=== PATIENT | female | born 1995 | race Caucasian/White ===

== ENCOUNTER 2020-10-02 15:45 | Emergency (ER) | payer OTHER, SELFPAY ==
--- NOTE | 2020-10-02 16:31 | PC.NURSE ---
Call to waiting room, no answer.
--- NOTE | 2020-10-02 16:47 | PC.NURSE ---
Not in waiting room when called.
== END 2020-10-02 16:47 | disposition left against medical advice (07) ==
DX: Z53.21 Procedure and treatment not carried out due to patient leaving prior to being seen by health care provider (principal)
CPT/HCPCS: 99199

== ENCOUNTER 2020-10-04 10:35 | Emergency (ER) | payer OTHER, SELFPAY ==
[2020-10-04 10:40] VITALS: BP 131/90; PULSE 122; RESP 20; TEMP 36.1; O2SAT 99
[2020-10-04 11:03] VITALS: BP 130/72; PULSE 118; RESP 20; TEMP 36.1; O2SAT 99
[2020-10-04 11:22] VITALS: BP 125/86; BP 136/101; PULSE 104; PULSE 70
[2020-10-04 11:22] LABS: Basophils Percent Auto 0.3 % (0.2-1.2); Eosinophils Percent Auto 0.3 % (0-4.4); Hematocrit 41.9 % (37.0-47.0); Hemoglobin 14.9 g/dL (12.0-15.0); Immature Granulocyte Absolute 0.05 K/mm3 (0.00-0.031); Immature Granulocyte Percent A 0.4 % (0-0.5); Lymphocytes Absolute Auto 2.07 K/mm3 (0.9-3.2); Lymphocytes Percent Auto 17.4 % (18.3-44.2); Mean Corpuscular HGB Conc 35.6 g/dl (32-36); Mean Corpuscular Hemoglobin 30.5 pg (26-34); Mean Corpuscular Volume 85.9 fl (80-100); Mean Platelet Volume 9.3 fl (7.4-10.4); Monocytes Absolute Auto 0.7 K/mm3 (0.1-0.6); Monocytes Percent Auto 5.9 % (2.6-8.5); Neutrophils Percent Auto 75.7 % (45.5-73.1); Platelet Count Result 286 k/mm3 (150-375); Red Blood Count 4.88 M/mm3 (4.2-5.4); Red Cell Distribution Width 11.7 % (11.5-14.5); White Blood Count 11.9 K/mm3 (4.5-10.0)
[2020-10-04 11:23] VITALS: BP 134/86; PULSE 131
[2020-10-04] MEDS: PROMETHAZINE HCL 25 MG/ML AMPUL 12.5 MG IV PUSH (11:29)
[2020-10-04] MEDS: SODIUM CHLORIDE 0.9% IV 1,000 ML 999 ML IV CONT (11:30)
[2020-10-04 11:36] LABS: Potassium 3.3 mmol/L (3.4-5.0)
[2020-10-04 11:47] LABS: Alanine Aminotransferase 16 U/L (4-35); Albumin Level 5.4 g/dL (3.5-5.1); Alkaline Phosphatase 46 U/L (38-126); Anion Gap 13 mmol/L (8-16); Aspartate Amino Transferase 24 U/L (14-36); Bilirubin,Total 1.1 mg/dL (0.2-1.3); Blood Urea Nitrogen 11 mg/dL (7-17); Calcium 9.8 mg/dL (8.4-10.2); Carbon Dioxide 25 mmol/L (22-30); Chloride 97 mmol/L (98-107); Estimated CRCL calculation 123 ml/min; Estimated Glomerular Filt Rate > 60; Glucose 144 mg/dL (65-105); Lipase 43 U/L (23-300); Sodium 135 mmol/L (137-145)
--- NOTE | 2020-10-04 11:47 | ED.NAVMDI ---
HPI - Nausea/Vomiting/Diarrhea General Chief complaint: Nausea/Vomiting/Diarrhea Stated complaint: /vomiting Time Seen by Provider: 10/04/20 10:54 History of Present Illness HPI Narrative: Patient is a 24-year-old female who presents ER with nausea and vomiting. Patient is 9 weeks . She is a G3, P2. She is scheduled to see Dr. Rebolledo at the [facility] in a couple days. She has been having nausea related to her reports she has not kept anything down for the last 72 hours. No abdominal pain or vaginal bleeding or vaginal discharge. No urinary frequency urgency or dysuria. Has had issues with vomiting in previous pregnancies. Related Data Allergies Allergy/AdvReac Type Severity Reaction Status Date / Time No Known Allergies Allergy Verified 10/04/20 11:07 Review of Systems Review of Systems: All systems reviewed & are unremarkable except as noted in HPI and below Constitutional: Constitutional: Denies chills, Denies fever(s) and Denies weakness ENT: Denies nasal congestion and Denies sore throat Respiratory: Respiratory: Denies cough and Denies dyspnea Gastrointestinal: Gastrointestinal: Denies abdominal pain, Denies constipation, Denies diarrhea, Reports nausea and Reports vomiting Genitourinary: Genitourinary: Denies abnormal vaginal bleeding, Denies nocturia, Denies dysuria, Denies flank pain and Denies vaginal discharge PMFSH Past Medical History Medical History (Updated 10/04/20 @ 14:35 by Matt Toney MD) Healthy female adult Surgical History Surgical History (Updated 10/04/20 @ 11:48 by Matt Toney MD) No pertinent past surgical history Social History Social History (Updated 10/04/20 @ 11:49 by Matt Toney MD) Smoking status: Never smoker Exam Narrative: Exam Narrative: GENERAL: Well-appearing, well-nourished, and in no acute distress. HEAD: Normocephalic, atraumatic. CHEST: Clear to auscultation. No respiratory distress. HEART: Tachycardic and regular. Normal peripheral pulses. ABDOMEN: Soft, nontender, nondistended EXTREMITIES: Normal range of motion. No edema. SKIN: Warm, dry, no rash. NEURO: Alert and oriented x3. PSYCH: Normal mood and affect. Course Course Emergency Course: Patient feels improved after IV fluid and antiemetics. She is tolerating oral fluids. Feels comfortable with discharge home with Phenergan. Will add on urine culture. No urinary symptoms. Vital Signs Vital signs: Vital Signs Temperature 97.0 F L 10/04/20 10:40 Pulse Rate 122 H 10/04/20 10:40 Respiratory Rate 20 10/04/20 10:40 Blood Pressure 131/90 10/04/20 10:40 Pulse Oximetry 99 10/04/20 10:40 Temperature 97.0 F L 10/04/20 11:03 Pulse Rate 78 10/04/20 14:00 Respiratory Rate 18 10/04/20 14:00 Blood Pressure 119/82 10/04/20 14:00 Pulse Oximetry 99 10/04/20 14:00 MDM - Nausea/Vomiting/Diarrhea Lab Data Result diagrams: 10/04/20 10:59 10/04/20 10:59 Labs: Lab Results 10/04/20 10/04/20 10/04/20 Range/Units 10:59 10:59 10:59 WBC 11.9 H (4.5-10.0) K/mm3 RBC 4.88 (4.2-5.4) M/mm3 Hgb 14.9 (12.0-15.0) g/dL Hct 41.9 (37.0-47.0) % MCV 85.9 (80-100) fl MCH 30.5 (26-34) pg MCHC 35.6 (32-36) g/dl RDW 11.7 (11.5-14.5) % Plt Count 286 (150-375) k/mm3 MPV 9.3 (7.4-10.4) fl Immature Gran % (Auto) 0.4 (0-0.5) % Neut % (Auto) 75.7 H (45.5-73.1) % Lymph % (Auto) 17.4 L (18.3-44.2) % [place] % (Auto) 5.9 (2.6-8.5) % Eos % (Auto) 0.3 (0-4.4) % Baso % (Auto) 0.3 (0.2-1.2) % Lymph # (Auto) 2.07 (0.9-3.2) K/mm3 [place] # (Auto) 0.7 H (0.1-0.6) K/mm3 Eos # (Auto) 0.0 (0-0.3) K/mm3 Baso # (Auto) 0.0 (0.0-0.1) K/mm3 Abs Immat Gran (auto) 0.05 H (0.00-0.031) K/mm3 Absolute Neuts (auto) 9.0 H (1.3-6.7) K/mm3 Absolute Nucleated RBC 0.0 (0.0-0.012) K/mm3 Nucleated RBC % 0.0 (0.0-0.2) % Sod
[2020-10-04 12:17] LABS: Add Urine Microscopic? YES; Appearance Urine Cloudy (Clear); Bilirubin Urine Negative (Negative); Blood Urine Negative (Negative); Color Urine Amber (Yellow); Glucose Urine UA Negative (Negative); Ketones Urine 2+ mg/dL (Negative); Leukocyte Esterase Ur Negative LEU/UL (Negative); Nitrate Urine Negative (Negative); Protein Urine 2+ mg/dL (Negative); Urobilinogen Urine Negative mg/dL (<2.0)
[2020-10-04 12:29] LABS: Specific Grav Ur 1.031 (1.001-1.035)
[2020-10-04 12:34] LABS: Bacteria Urine 2+ /hpf; Mucus Urine Few /lpf; Squamous Epithelial Cell Urine Many /hpf (Few); WBC Urine 0-3 /hpf
[2020-10-04 14:00] VITALS: BP 119/82; PULSE 78; RESP 18; O2SAT 99
[2020-10-04 14:57] VITALS: BP 127/70; PULSE 70; RESP 18; O2SAT 99
== END 2020-10-04 14:58 | disposition home or self-care (01) ==
PROVIDERS: Emergency Provider Emergency Medicine
DX: O21.9 Vomiting of pregnancy, unspecified (principal); Z3A.09 9 weeks gestation of pregnancy
CPT/HCPCS: 36415; 80053; 81001; 83690; 85025; 87086; 96361; 96374; 99284; J2550; J7030

== ENCOUNTER 2021-05-06 05:58 | Inpatient (IN) | payer OTHER, SELFPAY ==
[2021-05-06] VITALS (67 sets, daily range): BP systolic 117–167; BP diastolic 64–111; PULSE 55–128; RESP 18; TEMP 36.2–37; O2SAT 94–100; BMI 24.5
--- OUTSIDE RECORDS SUMMARY | 2021-05-06 06:07 | XMS_ITS | Encounter Summary ---
:1995 Author Reason for Visit OB visit 28w2d Glucose today Assessment and Plan 1. Routine care Discussion Note: None recorded.Patient educational handouts: No information available. Plan of Care Reminders Provider Appointments None ? ? recorded. Lab None ? ? recorded. Referral None ? ? recorded. Procedures None ? ? recorded. Surgeries None ? ? recorded. Imaging None ? ? recorded. Medications Name Start Date ? ? aspirin ? ? promethazine 25 mg tablet ? TAKE 1 TABLET BY MOUTH EVERY 4 HOURS Medications Administered None recorded. Vitals Height Weight BMI Blood Pressure 5 ft 7 in 140 lbs 21.9 kg/m2 122/78 mm[Hg] Results Lab Results None recorded. Allergies Code Code System Name Reaction Severity Onset NKDA ? ? ? Problems Name Status Onset Date Source ? Active 10/27/2020 ? History of Pre-eclampsia Active ? ? Procedures None recorded. Vaccine List None recorded. Social History Tobacco Smoking Status Never Smoker W
--- OUTSIDE RECORDS SUMMARY | 2021-05-06 06:07 | XMS_ITS | Encounter Summary ---
:1995 Author Reason for Visit OB visit Assessment and Plan 1. Routine care Discussion [...] BMI Blood Pressure 5 ft 7 in 138 lbs 21.6 kg/m2 113/75 mm[Hg] Results Lab Results None recorded. Allergies Code Code System Name Reaction Severity Onset NKDA ? ? ? Problems Name Status Onset Date Source ? Active 10/27/2020 ? History of Pre-eclampsia Active ? ? Procedures None recorded. Vaccine List None recorded. Social History Tobacco Smoking Status Never Smoker What type of diet are you following? REGULAR
--- OUTSIDE RECORDS SUMMARY | 2021-05-06 06:07 | XMS_ITS | Encounter Summary ---
:1995 Author Reason for Visit OB visit 32w1d Assessment and Plan 1. Routine care Discussion [...] BMI Blood Pressure 5 ft 7 in 139 lbs 21.8 kg/m2 109/73 mm[Hg] Results Lab Results None recorded. Allergies Code Code System Name Reaction Severity Onset NKDA ? ? ? Problems Name Status Onset Date Source ? Active 10/27/2020 ? History of Pre-eclampsia Active ? ? Procedures None recorded. Vaccine List None recorded. Social History Tobacco Smoking Status Never Smoker What type of
--- OUTSIDE RECORDS SUMMARY | 2021-05-06 06:07 | XMS_ITS | Encounter Summary ---
:1995 Author Reason for Visit OB visit OB [id number] EDC 05/09/2021 LMP 08/02/2020 Assessment and Plan Assessment Note Patient is __34_weeks . Dis cussed plan. 1. Routine care Discussion Note: None recorded.Patient [...] BMI Blood Pressure 5 ft 7 in 143 lbs 22.4 kg/m2 126/79 mm[Hg] Results Lab Results None recorded. Allergies Code Code System Name Reaction Severity Onset NKDA ? ? ? Problems Name Status Onset Date Source ? Active 10/27/2020 ? History of Pre-eclampsia Active ? ?
--- OUTSIDE RECORDS SUMMARY | 2021-05-06 06:07 | XMS_ITS | Encounter Summary ---
:1995 Author Reason for Visit OB visit 37w2d Assessment and Plan Assessment Note Patient is ___weeks . Discu ssed plan. Discussion Note: None recorded.Patient educational handouts: No [...] BMI Blood Pressure 5 ft 7 in 147 lbs 23 kg/m2 112/74 mm[Hg] Results Lab Results None recorded. Allergies Code Code System Name Reaction Severity Onset NKDA ? ? ? Problems Name Status Onset Date Source ? Active 10/27/2020 ? History of Pre-eclampsia Active ? ? Procedures Date Name Performed by ?
--- OUTSIDE RECORDS SUMMARY | 2021-05-06 06:07 | XMS_ITS | Encounter Summary ---
:1995 Author Reason for Visit None recorded. Assessment and Plan 1. History of pre-eclampsia ? US, obstetric, follow-up Discussion Note: None recorded.Patient educational handouts: No information available. Plan of Care Reminders Provider Appointments None ? ? recorded. Lab None ? ? recorded. Referral None ? ? recorded. Procedures None ? ? recorded. Surgeries None ? ? recorded. Imaging US, 04/11/2021 [place] [facility], Follow-up Medications Name Start Date ? ? aspirin ? ? promethazine 25 mg tablet ? TAKE 1 TABLET BY MOUTH EVERY 4 HOURS Medications Administered None recorded. Vitals None recorded. Results Lab Results None recorded. Allergies Code Code System Name Reaction Severity Onset NKDA ? ? ? Problems Name Status Onset Date Source ? Active 10/27/2020 ? History of Pre-eclampsia Active ? ? Procedures Date Name Performed by ? 04/11/2021 US, Obstetric, Follow-up [place]
--- OUTSIDE RECORDS SUMMARY | 2021-05-06 06:07 | XMS_ITS ---
:1995 Author Care Team Providers Name Role Phone Miranda Sanchez Primary Care Provider Unavailable Allergies Code Code System Name Reaction Severity Status Onset NKDA ? Medications Name Status Start Date Stop Date ? ? aspirin Active ? Not available Compazine 5 mg tablet Completed 05/03/2018 10/07/2020 take 1 tablet by oral route every 4 hours as needed for nausea and vomiting metronidazole 500 mg tablet Active ? Not available TAKE 1 TABLET BY MOUTH TWICE DAILY FOR 7 DAYS nifedipine 10 mg capsule Completed ? 021 take 2 Capsule by oral route every 6 hours Active ? Not available 28 mg-800 mcg tablet Completed ? One Daily 27 mg iron-800 mcg tablet Completed ? 09/04/2014 take 1 tablet by oral route every day promethazine Completed ? 11/24/2020 promethazine 25 mg tablet Active ? Not av ailable TAKE 1 TABLET BY MOUTH EVERY 4 HOURS Reglan 10 mg tablet Completed 01/21/2014 01/21/2014 take 1 tablet by oral route every 8 hours as needed for nausea Vitamin D2 1,250 mcg (50,000 unit) capsule Completed 06/2909/04/2014 take 1 capsule by oral route every week for 8 weeks. Zofran 8 mg tablet Completed 02/26/2014 09/04/2014 take 1 tablet by oral route every 8 hours Zoloft 25 mg tablet Completed 09/11/2014 10/02/2014 take 1 tablet by oral route every day Problems Name Status Onset Date Source ? Female Genital Organ Symptoms Unknown
--- OUTSIDE RECORDS SUMMARY | 2021-05-06 06:07 | XMS_ITS | Encounter Summary ---
[...] BMI Blood Pressure 5 ft 7 in 151 lbs 23.6 kg/m2 118/75 mm[Hg] Results Lab Results None recorded. Allergies Code Code System Name Reaction Severity Onset NKDA ? ? ? Problems Name Status Onset Date Source ? Active 10/27/2020 ? History of Pre-eclampsia Active ? ? Procedures Date Name Performed by ? 04/11/2021 , Obstetric, Follow-up [place]
--- OUTSIDE RECORDS SUMMARY | 2021-05-06 06:07 | XMS_ITS | Encounter Summary ---
[...] ft 7 in 147 lbs 23 kg/m2 121/78 mm[Hg] Results Lab Results None recorded. Allergies Code Code System Name Reaction Severity Onset NKDA ? ? ? Problems Name Status Onset Date Source ? Active 10/27/2020 ? History of Pre-eclampsia Active ? ? Procedures Date Name Performed by ? 04/11/2021 US, Obstetric, Follow-up [place]
[2021-05-06 06:37] LABS: Basophils Percent Auto 0.2 % (0.2-1.2); Eosinophils Absolute Auto 0.2 K/mm3 (0-0.3); Eosinophils Percent Auto 2.8 % (0-4.4); Hematocrit 30.1 % (37.0-47.0); Hemoglobin 9.9 g/dL (12.0-15.0); Immature Granulocyte Absolute 0.07 K/mm3 (0.00-0.031); Immature Granulocyte Percent A 0.8 % (0-0.5); Lymphocytes Absolute Auto 2.37 K/mm3 (0.9-3.2); Lymphocytes Percent Auto 27.9 % (18.3-44.2); Mean Corpuscular HGB Conc 32.9 g/dl (32-36); Mean Corpuscular Hemoglobin 28.4 pg (26-34); Mean Corpuscular Volume 86.5 fl (80-100); Mean Platelet Volume 9.6 fl (7.4-10.4); Monocytes Absolute Auto 0.5 K/mm3 (0.1-0.6); Monocytes Percent Auto 5.9 % (2.6-8.5); Neutrophils Absolute Auto 5.3 K/mm3 (1.3-6.7); Neutrophils Percent Auto 62.4 % (45.5-73.1); Platelet Count Result 263 k/mm3 (150-375); Red Blood Count 3.48 M/mm3 (4.2-5.4); Red Cell Distribution Width 12.5 % (11.5-14.5); White Blood Count 8.5 K/mm3 (4.5-10.0)
--- NOTE | 2021-05-06 06:40 | LDADM ---
This patient, Zully Wiley, was admitted to Labor/Delivery/Recovery 108 on 05/06/21 at 05:58. Plans for labor, pain management and were discussed with patient. Patient/family oriented to hospital policies and general routines including ID bracelet, bed and alarms, visiting hours, pain management, procedures, bathroom and other care routines, personal items, smoking policy, room service/diet and guest tray routines, infant security routines, and visiting hours. Patient/Family are encouraged to report perceived risks to care and to ask questions if they do not understand what they are told or what they should do. See OBIX for further documentation.
[2021-05-06] MEDS: OXYTOCIN 30 UNITS/NS 500 ML 30 UNITS/500 ML BAG IV CONT (06:58)
[2021-05-06] MEDS: LACTATED RINGERS 1,000 ML 125 ML IV CONT ×2 (06:58→10:07)
--- NOTE | 2021-05-06 07:50 | PM.IMHP ---
H&P: HPI History of Present Illness Date/Time: 05/06/21 07:50 Chief Complaint: induction of labor Narrative: Zully is a at 39 weeks for elective induction. Had gHTN last but none this . This uncomplicated. Review of Systems Review of Systems: All systems reviewed & are unremarkable except as noted in HPI and below PMFSH Family History Family History (Updated 04/11/21 @ 14:35 by Ranjith Millan RN) Other No pertinent family history Social History Social History Smoking status: Never smoker Substance use: never Spiritual care concerns: No Meds Home Medications and Allergies Home Medications Medication Instructions Recorded Confirmed Type PNV cmb#95-ferrous fumarate-FA 1 tablet PO DAILY 04/11/21 05/06/21 History [] Allergies Allergy/AdvReac Type Severity Reaction Status Date / Time No Known Allergies Allergy Verified 04/11/21 14:27 Vital Signs Vital Signs - 24 hr 05/06/21 06:30 05/06/21 06:45 05/06/21 07:00 Pulse Rate 69 72 73 Blood Pressure 123/73 125/74 123/78 05/06/21 07:15 05/06/21 07:30 05/06/21 07:45 Pulse Rate 77 69 68 Blood Pressure 124/74 117/75 118/69 Exam Const: General: no acute distress Resp: Effort & Inspection: normal respiratory effort Auscultation: clear to auscultation bilaterally Cardio: Rate: regular rate Rhythm: regular rhythm GI: GI Palp: Yes Soft to palpation Extrem: General: normal to inspection H&P: Results Labs Labs: Short CBC 05/06/21 Range/Units 06:25 WBC 8.5 (4.5-10.0) K/mm3 Hgb 9.9 L (12.0-15.0) g/dL Hct 30.1 L (37.0-47.0) % Plt Count 263 (150-375) k/mm3 Assessment and Plan Additional Plan Here for induction of labor- pitocin GBS neg FHT category 1 AROM clear SVE 1.5/50/-2
[2021-05-06 10:16] LABS: Rapid Plasma Reagin Non-Reactive (NonReactive)
--- NOTE | 2021-05-06 10:57 | WPDANESEPPF ---
Anes - Initial Pre Proc Eval Date/Time: 05/06/21 10:57 Surgeon: Miranda Sanchez MD Pre Op Diagnosis: Induction of Labor Patient Data Age: 25 Gender: F Height: 1.68 m Weight: 69 kg Last Vital Signs Temp 36.6 C 05/06/21 09:30 Pulse 63 05/06/21 10:48 BP 141/111 H 05/06/21 10:48 Pulse Ox 94 05/06/21 10:09 Allergies Allergy/AdvReac Type Severity Reaction Status Date / Time No Known Allergies Allergy Verified 04/11/21 14:27 Home Medications Medication Instructions Recorded Confirmed Type PNV cmb#95-ferrous fumarate-FA 1 tablet PO DAILY 04/11/21 05/06/21 History [] Laboratory Tests 05/06/21 05/06/21 05/06/21 06:25 06:25 06:25 WBC 8.5 K/mm3 K/mm3 (4.5-10.0) RBC 3.48 M/mm3 L M/mm3 (4.2-5.4) Hgb 9.9 g/dL L g/dL (12.0-15.0) Hct 30.1 % L % (37.0-47.0) MCV 86.5 fl fl (80-100) MCH 28.4 pg pg (26-34) MCHC 32.9 g/dl g/dl (32-36) RDW 12.5 % % (11.5-14.5) Plt Count 263 k/mm3 k/mm3 (150-375) MPV 9.6 fl fl (7.4-10.4) Immature Gran % (Auto) 0.8 % H % (0-0.5) Neut % (Auto) 62.4 % % (45.5-73.1) Lymph % (Auto) 27.9 % % (18.3-44.2) [place] % (Auto) 5.9 % % (2.6-8.5) Eos % (Auto) 2.8 % % (0-4.4) Baso % (Auto) 0.2 % % (0.2-1.2) Lymph # (Auto) 2.37 K/mm3 K/mm3 (0.9-3.2) [place] # (Auto) 0.5 K/mm3 K/mm3 (0.1-0.6) Eos # (Auto) 0.2 K/mm3 K/mm3 (0-0.3) Baso # (Auto) 0.0 K/mm3 K/mm3 (0.0-0.1) Abs Immat Gran (auto) 0.07 K/mm3 H K/mm3 (0.00-0.031) Absolute Neuts (auto) 5.3 K/mm3 K/mm3 (1.3-6.7) Absolute Nucleated RBC 0.0 K/mm3 K/mm3 (0.0-0.012) Nucleated RBC % 0.0 % % (0.0-0.2) RPR Non-reactive (NonReactive) Blood Type O Positive Antibody Screen Negative Patient hx anesthesia problems: none Family hx anesthesia problems: none Results Review: All pre-operative results and documents have been reviewed as part of the pre-operative evaluation. [facility] Family History Family History Other No pertinent family history Social History Social History Smoking status: Never smoker Substance use: never Spiritual care concerns: No Anes - Eval Final PreProcedure Day of Procedure 05/06/21 10:57 Patient weight: normal Heart: regular rate and rhythm Lungs: clear to auscultation Neurological: alert and oriented ASA classification: II Emergent: no Anesthetic plan: proceed Anesthesia type and monitoring: regional epidural and standard monitoring Results Review: All pre-operative results and documents have been reviewed as part of the pre-operative evaluation. Informed Consent: The patient's anesthetic plan and its attendant risks and benefits were discussed with the patient/family/POA. Questions were solicited and answers provided to the satisfaction of the patient/family/POA.
[2021-05-06] MEDS: ONDANSETRON INJ 4 MG/2 ML VIAL IV PUSH ×2 (13:29→17:27)
--- NOTE | 2021-05-06 14:46 | PM.OBPRVD ---
OB - Delivery Note Procedure Delivery date: 05/06/21 Procedure: events: Labor Induction Intrapartal events: None Induction method: AROM and per pitocin protocol Delivery monitor: external FHT and external uterine Route of delivery: Episiotomy description: None Laceration Description: None Quantitative Blood Loss (ml): 350 Anesthesia type: Epidural Disposition: floor Narrative: With adequate expulsive efforts by the mother, the baby's head was delivered OA. The baby's anterior shoulder was delivered under the pubic symphysis without difficulty. The posterior shoulder and the rest of the baby delivered without difficulty. The was placed on the mothers chest and suctioned and stimulated. The cord was clamped and cut after 30 seconds. Mother and baby both stable. Baby Date of : 05/06/21 Time of : 14:35 Weeks of gestation at delivery: 39 gender: Female Weight (pounds): 7 Weight (ounces): 2 presentation: vertex Placenta delivery description: Spontaneous cord vessel description: 3 Vessels, Nuchal Cord and Delayed Cord Clamping score one minute: 7 score five minutes: 9
[2021-05-06] MEDS: OXYTOCIN 30 UNITS/NS 500 ML 30 UNITS/500 ML BAG 125 UNITS IV CONT ×2 (15:00→15:08)
[2021-05-06] MEDS: miSOPROStol 200 MCG TABLET 800 MCG (15:36)
[2021-05-06 16:30] LABS: Amphetamine Screen Urine Negative (Negative); Barbiturate Screen Urine Negative (Negative); Benzodiazepines Screen Urine Negative (Negative); Cannabinoid Screen Urine Positive (Negative); Cocaine Screen Urine Negative (Negative); Methadone Screen Urine Negative (Negative); Opiate Screen Urine Negative (Negative); Phencyclidine Screen Urine Negative (Negative)
[2021-05-06] MEDS: METHYLERGONOVINE MALEATE 0.2 MG/ML VIAL IM (16:50)
[2021-05-06] MEDS: ACETAMINOPHEN 325 MG TABLET 650 MG PO (17:13)
[2021-05-06 17:56] LABS: Hematocrit 26.2 % (37.0-47.0); Hemoglobin 8.7 g/dL (12.0-15.0); Mean Corpuscular HGB Conc 33.2 g/dl (32-36); Mean Corpuscular Hemoglobin 29.1 pg (26-34); Mean Corpuscular Volume 87.6 fl (80-100); Mean Platelet Volume 9.8 fl (7.4-10.4); Platelet Count Result 218 k/mm3 (150-375); Red Blood Count 2.99 M/mm3 (4.2-5.4); Red Cell Distribution Width 12.6 % (11.5-14.5); White Blood Count 20.6 K/mm3 (4.5-10.0)
--- NOTE | 2021-05-06 20:11 | PC.NURSE ---
Patient transferred to post room #280 via wheel chair. Support person present. Oriented to unit, room, information board, rooming in, admission packet and security measures. Patient verbalizes understanding.
[2021-05-06] MEDS: IBUPROFEN 600 MG TABLET PO (20:23)
[2021-05-06] MEDS: POLYSACCHARIDE IRON COMPLEX 150 MG CAPSULE PO (20:24)
[2021-05-07] VITALS (12 sets, daily range): BP systolic 109–134; BP diastolic 58–83; PULSE 54–92; RESP 16–18; TEMP 36.1–37; O2SAT 98–100
[2021-05-07] MEDS: ACETAMINOPHEN 325 MG TABLET 650 MG PO (00:49)
[2021-05-07] MEDS: IBUPROFEN SUSPENSION 200 MG/10 ML UDC 600 MG PO ×2 (05:15→17:11)
[2021-05-07 06:10] LABS: Hematocrit 23.2 % (37.0-47.0); Hemoglobin 7.6 g/dL (12.0-15.0)
[2021-05-07] MEDS: DOCUSATE SODIUM 100 MG CAPSULE PO ×2 (09:37→17:11)
[2021-05-07] MEDS: MULTIVIT/MIN/PREN/FOL AC/IRON TABLET 1 TAB PO (09:37)
[2021-05-07] MEDS: POLYSACCHARIDE IRON COMPLEX 150 MG CAPSULE PO ×2 (09:37→17:11)
--- NOTE | 2021-05-07 09:43 | P.PNOB_ITS ---
OB - PN: Subj Subjective Date/time seen: 05/07/21 09:43 Interval history: Had a delayed pp hemorrhage, with total EBL of over 1000ml now. Hgb 7.6 from 9.9. Has fatigue, feels pale. Also hoping to go home today. Patient comments: pain well controlled baby status: bottle feeding well feeding status: exclusively bottle feeding OB - PN: Obj Data Labs CBC & Chem 7: 05/07/21 05:21 Labs: Laboratory Results - last 24 hr 05/06/21 05/06/21 05/06/21 06:25 15:56 17:52 WBC 20.6 H RBC 2.99 L Hgb 8.7 L Hct 26.2 L MCV 87.6 MCH 29.1 MCHC 33.2 RDW 12.6 Plt Count 218 MPV 9.8 Urine Opiates Screen Negative Urine Methadone Screen Negative Ur Barbiturates Screen Negative Ur Phencyclidine Scrn Negative Ur Amphetamine Screen Negative U Benzodiazepines Scrn Negative Urine Cocaine Screen Negative U Cannabinoids Screen Positive A RPR Non-reactive 05/07/21 05:21 WBC RBC Hgb 7.6 L Hct 23.2 L MCV MCH MCHC RDW Plt Count MPV Urine Opiates Screen Urine Methadone Screen Ur Barbiturates Screen Ur Phencyclidine Scrn Ur Amphetamine Screen U Benzodiazepines Scrn Urine Cocaine Screen U Cannabinoids Screen RPR OB - PN A/P Assessment and Plan (1) Anemia due to blood loss: Code(s): D50.0 - Iron deficiency anemia secondary to blood loss (chronic) Status: Acute Assessment and Plan: Discussed RBA of blood transfusion and recommended 2 units given her large pp hemorrhage and significantly low Hgb. She is agreeable. 2 units pRBCs, pretreat with tylenol and benadryl. (2) , delivered: Code(s): O80 - Encounter for full-term uncomplicated delivery Status: Acute Assessment and Plan: Encouraged one more night given pp hemorrhage. Pt agrees. otherwise routine post care. Plan day: 1 Plan: routine care Time Spent With Patient Time: Total time spent is greater than 50% in coordination of care (as docu mented) at patient's floor/unit and/or counseling patient: Time with patient: less than 15 minutes Exam Narrative: NAD abdomen soft, nontender, fundus firm below the umbilicus Extremities nontender, 1+ edema
--- NOTE | 2021-05-07 09:49 | WPDANLDPN2 ---
Anes-Prog Note L&D Date/Time: 05/07/21 09:49 Comfortable throughout: labor and delivery Neuraxial method: epidural Epidural/Spinal procedure site: clean & non-tender Neuro status: Neuro function grossly intact. Cardiovascular status: normal Respiratory status: normal Airway patency: baseline Mental status: baseline Post-Op hydration status: normal Vital Signs: Last Vital Signs Temp 36.6 C 05/07/21 07:45 Pulse 56 L 05/07/21 07:45 Resp 16 05/07/21 07:45 BP 123/59 L 05/07/21 07:45 Pulse Ox 100 05/07/21 07:45 Pain score (VAS): 0 I/O: Intake & Output 05/06/21 05/07/21 05/07/21 23:59 07:59 15:59 Intake Total 500 Output Total 215 Balance 285 Post-procedural complaints: none Patient feedback: Patient satisfied with anesthetic care.
[2021-05-07] MEDS: ACETAMINOPHEN ELIXIR 325 MG/10.15 ML UDC 650 MG PO (11:47)
[2021-05-07] MEDS: diphenhydrAMINE HCl CAP 25 MG CAPSULE PO (11:48)
--- NOTE | 2021-05-07 15:25 | PCCCNOTE ---
Addendum entered by JIMY Shearer 05/08/21 07:05: Recvd email from [facility]: Your information has been reviewed and assessed by a Fabric Worker Leader and was also approved by a school traffic supervisor. The information you provided did not meet one of the criteria for an investigation (eligible victim, eligible perpetrator, eligible event, or jurisdiction). The information as been documented and will be kept on file. Should you learn of further information or have additional concerns, please feel free to contact us. Original Note: Recvd notification that pt. was THC+. Ice Rink Attendant did not order that baby have UDS or Meconium tested. Pt. reports using THC for her nausea; Pt. states she took medications for the nausea but they weren?t working. ANNIKA Caraballo at bedside; this is pt's third baby. Pt. and baby girl will be living in [place] with ANNIKA Caraballo and 2 other children 6 and 2 yr olds. Pt. reports both families are very supportive and denies needing any necessary baby supplies. Pt. is already established with both [facility] and [employer]. Pt. denies prior DCFS involvement. resources provided to pt. DCFS Online Report #[id number]. RN Jo westfall.
--- NOTE | 2021-05-07 19:30 | PC.NURSE ---
Patient viewed the discharge video Mother & Baby Care, The First Two Weeks online. Patient was given the opportunity and encouraged to ask questions. Patient verbalized understanding of information shared and has been given the mother/baby guide for home reference.
[2021-05-08] MEDS: IBUPROFEN SUSPENSION 200 MG/10 ML UDC 600 MG PO (07:09)
[2021-05-08] MEDS: DOCUSATE SODIUM 100 MG CAPSULE PO (07:09)
[2021-05-08] MEDS: POLYSACCHARIDE IRON COMPLEX 150 MG CAPSULE PO (07:09)
[2021-05-08 08:00] VITALS: BP 126/83; PULSE 56; RESP 18; TEMP 36.3
--- NOTE | 2021-05-08 09:12 | P.PNOB_ITS ---
OB - PN: Subj Subjective Date/time seen: 05/08/21 09:12 Interval history: Feels so much better after blood. Ready for DC. Patient comments: no complaints [place] baby status: doing well feeding status: exclusively bottle feeding OB - PN: Obj Data Labs CBC & Chem 7: 05/07/21 05:21 Labs: Laboratory Results - last 24 hr 05/06/21 06:25 Blood Type O Positive Antibody Screen Negative Crossmatch See Detail OB - PN A/P Plan day: 2 Plan: routine care and discharge home Comments: s/p 2 units pRBCs Time Spent With Patient Time: Total time spent is greater than 50% in coordination of care (as documented) at patient's floor/unit and/or counseling patient: Time with patient: less than 15 minutes Exam Narrative: NAD abdomen soft, nontender, fundus firm below the umbilicus Extremities nontender, 1+ edema
--- NOTE | 2021-05-08 09:15 | PM.OBDSVD ---
DS: Admitting Diagnosis Discharge Date 05/08/21 Admitting Diagnosis term DS: Discharge Diagnosis Discharge Diagnosis (1) , delivered: Code(s): O80 - Encounter for full-term uncomplicated delivery Status: Acute (2) Anemia due to blood loss: Code(s): D50.0 - Iron deficiency anemia secondary to blood loss (chronic) Status: Acute OB - DS: Summary Hospital Course Hospital Course: Patient was induced electively. She had an uncomplicated but had a significant hemorrhage. She received 2 units of blood. The remainder of her course was uncomplicated. OB Procedures : Ultrasound OB Procedures Intrapartum: Spontaneous Vag Delivery OB Procedures: : Transfusion Peripartum Data Delivery Method: Natural Vaginal complications: transfusion and uterine atony Status at Discharge Functional status at discharge: independent ambulation Time Spent with Patient Time attestation: Total time spent providing and/or coordinating discharge services: Exam Narrative: NAD abdomen soft, appropriately tender Ext non tender, 1+ edema DS: Data Data Completed and Pending Labs on day of discharge: Labs from last 24 hours 05/06/21 06:25 Blood Type O Positive Antibody Screen Negative Crossmatch See Detail Discharge Plan Discharge Attending physician on discharge: Miranda Sanchez Discharging Clinician: Miranda Sanchez Anticipated Discharge Date/Time: 05/08/21 11:00 Patient Disposition: Home, Self-Care Activity: may shower, pelvic rest and other - see discharge instructions Diet: regular Discharge Instructions: Education: Mom and Baby Guide Given to: Mother Follow-Up: Call your delivering provider's office for an appointment to be seen in: 4 Weeks Mom and baby should come to the [facility] for the follow-up appointment. Appointment Date/Time: Monday, May 10, 2021 at 10:00 am What to expect at your follow-up visit: Blood Pressure Check Physical Assessment Call [phone] if you are unable to keep your appointment time. BREAST CARE: * Wear a snug supportive bra. Bottle Feeding: * May apply ice packs EPISIOTOMY/PERINEAL CARE: * Until bleeding stops, use your susan bottle after urinating * Change your pad frequently throughout the day * You may take sitz baths several times a day (fill your bathtub with warm water and soak for 20 minutes.) Do NOT bathe in the water ACTIVITY: * Rest as much as possible. * Do not exercise or lift anything heavier than your baby (such as laundry or other children.) * Avoid stairs or driving as much as possible. * Do not put anything into the vagina. No douching, tampons, or sexual activity until seen by physician. NOTIFY PHYSICIAN IF YOU HAVE ANY QUESTIONS OR IF ANY OF THE FOLLOWING SYMPTOMS OCCUR: * If your vaginal bleeding becomes foul smelling. * If your vaginal bleeding becomes more heavy than a period or if your bleeding changes from pink to bright red. However, you may pass an occasional walnut-sized clot once or twice for the first week . * If you experience a sharp, shooting pain in you calves. * If you discover a hard, reddened area on your breast or if you experience flu-like symptoms. DIET: * Eat regular, well-balanced meals. * Drink plenty of fluids daily. If , drink to thirst. Patient Instructions: Antibiotic Form Stand Alone Forms: General Discharge Information Follow-up/Referrals: Miranda Sanchez MD [Physician] - 4 Weeks Discharge Medications: Continued PNV [id number] fumarate-FA [] 28 mg iron- 800 mcg Tablet 1 tablet PO DAILY RF: 0 Date of admission: 05/06/21 05:58 Primary Care Provider: PHYSICIAN,SIGN LANGUAGE INTERPRETER Admitting Provider: Miranda Sanchez Attending physician on admission: Miranda Sanchez Condition: Stable
--- NOTE | 2021-05-08 10:16 | PC.NURSE ---
Self care and infant care discharge instructions given including follow up visit date and time. Mother verbalized understanding. No questions or concerns voiced. Very pleasant. Anxious for discharge. at side.
[2021-05-10 10:01] VITALS: BP 141/89; PULSE 73; RESP 20; TEMP 37; O2SAT 100
== END 2021-05-08 11:33 | disposition home or self-care (01) | DRG 560 ==
LOC: ANHLDR 06:51 → ANHOB2 21:19
PROVIDERS: Admitting Provider Obstetrics & Gynecology; Visit Provider Obstetrics & Gynecology
DX: O69.81X0 Labor and delivery complicated by cord around neck, without compression, not applicable or unspecified (principal); O99.02 Anemia complicating childbirth; D50.9 Iron deficiency anemia, unspecified; O72.1 Other immediate postpartum hemorrhage; Z3A.39 39 weeks gestation of pregnancy; Z37.0 Single live birth
CPT/HCPCS: 36415; 36430; 80307; 85014; 85018; 85025; 85027; 86592; 86850; 86900; 86901; 86920; A9270; J2210; J2405; J2590; J2795; J7120; P9016

== ENCOUNTER 2021-10-25 11:20 | Emergency (ER) | payer OTHER, SELFPAY ==
[2021-10-25 11:20] VITALS: BP 134/84; PULSE 75; RESP 16; TEMP 36.6; O2SAT 100
--- NOTE | 2021-10-25 11:24 | ED.SKABFB ---
HPI - Skin/Abscess/Foreign Bdy General Chief complaint: Skin/Abscess/Foreign Body Stated complaint: rash Time Seen by Provider: 10/25/21 11:24 Source: patient Mode of arrival: ambulatory Limitations: no limitations History of Present Illness HPI narrative: Ms. Wiley is a 25-year-old female patient presenting to the clinic today with complaints of a rash x2 days. She reports that she tested positive for COVID approximately 10 days ago. She is supposed to be returning to work today however she developed an itchy rash yesterday. She reports that this rash is on her arms, legs, torso, and face. She woke up this morning with her eyes swelling. This has improved some since this morning. She is taking Benadryl. She denies any environmental changes, foods, or medications. She did report that she has been out in the boss however she was fully covered. Related Data Home Medications Medication Instructions Recorded Confirmed sertraline 50 mg PO DAILY 10/25/21 10/25/21 Allergies Allergy/AdvReac Type Severity Reaction Status Date / Time No Known Allergies Allergy Verified 10/25/21 11:39 Review of Systems Review of Systems: Pertinent positives per HPI. Patient denies any fever, chills, headache, visual changes, dizziness, cough, runny nose, sore throat, shortness of breath, chest pain, palpitations, nausea, vomiting, diarrhea, constipation, abdominal pain, or any urinary issues. PMFSH Past Medical History Medical History Healthy female adult Surgical History Surgical History No pertinent past surgical history Family History Family History Other No pertinent family history Social History Social History Smoking status: Never smoker Substance use: never Spiritual care concerns: No Comments At the time of my signature, I reviewed and agree with the nursing past medical, surgical, social, and family history. There is no relevant family history pertinent to the patient complaint. Exam Narrative: General: Well-developed, well nourished, in no apparent distress Head: Normocephalic, atraumatic. Cardio: Regular rate and rhythm, s1 and s2 normal, no murmur appreciated. Resp: Clear to auscultation bilaterally, no rhonchi, rales, wheezing or rubs. Integumentary: [place], warm, and dry, intact without lesion, red raised urticaria rash to the bilateral forearms, torso, face, neck and thighs. Course Course Emergency Course: Portions of this record may have been created with voice recognition software. Level of Care: Express Care Visit Vital Signs Vital signs: Vital signs reviewed MDM - Skin/Abscess/Foreign Bdy MDM Narrative Medical decision making narrative: At time patient is resting comfortably on the exam table. She has pain mildly elevated urticaria rash to her bilateral forearms, legs, face, and torso that is itchy. I will go ahead and treat her with a course of prednisone, Pepcid, and Benadryl. Offered a steroid shot in the clinic and patient declined. Supportive measures were discussed with patient and she agreed to the discharge plan. Differential Diagnosis Differential diagnosis: Likely abscess of skin or subcutaneous tissue, viral exanthem, dermatophytosis, urticaria, herpes zoster, allergic reaction to drug, cellulitis, eczema, insect bites, impetigo and contact dermatitis Discharge Plan Discharge Clinical Impression: Urticaria Patient Disposition: Home, Self-Care Condition: Stable Instructions: Urticaria (ED) Additional Instructions: Prednisone, Pepcid, and Benadryl as discussed Increase fluids and stay well-hydrated Tylenol/Motrin as needed for pain fever If symptoms persist in 3 to 5 days I would recommend follow-up with your [facility]
== END 2021-10-25 11:45 | disposition home or self-care (01) ==
PROVIDERS: Emergency Provider Nurse Practitioner Family
DX: L50.9 Urticaria, unspecified (principal)
CPT/HCPCS: 99213; G0463

== ENCOUNTER 2021-10-31 20:05 | Emergency (ER) | payer OTHER, SELFPAY ==
--- NOTE | ~2021-10-31 | XR_ITS ---
EXAMINATION: XR chest 2V Exam Date/Time: 10/31/2021 20:45 CDT CLINICAL HISTORY: MEDIAL CP, COVID + ON 10/15, SMOKER Comparison: None available. RESULT: Lines, tubes, and devices: None. Lungs and pleura: Clear. Cardiomediastinal silhouette: Normal cardiomediastinal silhouette. Other: No acute osseous or upper abdominal finding. IMPRESSION: No acute cardiopulmonary process Reviewed, dictated and finalized at location K.
[2021-10-31 20:29] VITALS: BP 141/67; PULSE 69; RESP 16; TEMP 36.4; O2SAT 100
--- NOTE | 2021-10-31 20:36 | ECG_ITS ---
Measurements Intervals [place] Rate: 71 P: 58 CT: 137 QRS: 108 QRSD: 103 T: 61 QT: 388 QTc: 423 Interpretive Statements SINUS RHYTHM RIGHT AXIS DEVIATION BORDERLINE ECG Electronically Signed On 11-01-2021 6:31:11 CDT by Som Fofana D.O.
[2021-10-31 20:45] LABS: Basophils Absolute Auto 0.1 K/mm3 (0.0-0.1); Basophils Percent Auto 0.7 % (0.2-1.2); Eosinophils Absolute Auto 0.2 K/mm3 (0-0.3); Eosinophils Percent Auto 3.3 % (0-4.4); Hematocrit 36.4 % (37.0-47.0); Hemoglobin 11.6 g/dL (12.0-15.0); Immature Granulocyte Absolute 0.02 K/mm3 (0.00-0.031); Immature Granulocyte Percent A 0.3 % (0-0.5); Lymphocytes Absolute Auto 3.32 K/mm3 (0.9-3.2); Mean Corpuscular HGB Conc 31.9 g/dl (32-36); Mean Corpuscular Hemoglobin 27.8 pg (26-34); Mean Corpuscular Volume 87.1 fl (80-100); Mean Platelet Volume 9.1 fl (7.4-10.4); Monocytes Absolute Auto 0.5 K/mm3 (0.1-0.6); Monocytes Percent Auto 6.4 % (2.6-8.5); Neutrophils Percent Auto 42.3 % (45.5-73.1); Platelet Count Result 278 k/mm3 (150-375); Red Blood Count 4.18 M/mm3 (4.2-5.4); Red Cell Distribution Width 15.4 % (11.5-14.5); White Blood Count 7.1 K/mm3 (4.5-10.0)
[2021-10-31 20:56] LABS: INR 1.1; Prothrombin Time 13.7 Seconds (11.1-14.7)
[2021-10-31 20:57] LABS: Partial Thromboplastin Time 28.4 SECONDS (22.3-36.8)
[2021-10-31 21:00] LABS: Alanine Aminotransferase 12 U/L (6-35); Albumin Level 4.3 g/dL (3.5-5.1); Alkaline Phosphatase 57 U/L (38-126); Anion Gap 5 mmol/L (8-16); Aspartate Amino Transferase 25 U/L (14-36); Bilirubin,Total 0.2 mg/dL (0.2-1.3); Blood Urea Nitrogen 13 mg/dL (7-17); Calcium 8.9 mg/dL (8.4-10.2); Carbon Dioxide 27 mmol/L (22-30); Chloride 104 mmol/L (98-107); Estimated CRCL calculation 99 ml/min; Estimated Glomerular Filt Rate > 60; Glucose 89 mg/dL (65-110); Lipase 111 U/L (23-300); Potassium 3.9 mmol/L (3.4-5.0); Sodium 136 mmol/L (137-145)
[2021-10-31 21:10] LABS: Troponin I < 0.012 ng/mL (0.000-0.034)
[2021-10-31 22:44] VITALS: BP 115/78; PULSE 58; RESP 15; O2SAT 98
--- NOTE | 2021-10-31 23:50 | ED.GENADULT ---
HPI - General Adult General Chief complaint: Unspecified Stated complaint: chest pain/blurry vision Time Seen by Provider: 10/31/21 22:49 History of Present Illness HPI narrative: 25-year-old female presents to the emergency room for evaluation of chest pain that she has had for 4 days. Patient states the pain has been constant, does not radiate, and is worse with deep breaths and movement. Patient states that she recently was diagnosed with COVID. Patient denies having a recent cough. Patient is also complaining of intermittent palpitations. No cardiac history Related Data Home Medications Medication Instructions Recorded Confirmed sertraline 50 mg PO DAILY 10/25/21 10/25/21 Allergies Allergy/AdvReac Type Severity Reaction Status Date / Time No Known Allergies Allergy Verified 10/31/21 22:40 Review of Systems Review of Systems: CONSTITUTIONAL: Denies fever, chills, or sweats. EYES: Denies visual changes, redness, or discharge. ENT: Denies rhinorrhea, congestion, sore throat, or otalgia. CARDIOVASCULAR: Reports chest pain, palpitations RESPIRATORY: Denies cough or dyspnea. GASTROINTESTINAL: Denies abdominal pain, nausea, vomiting, or diarrhea. GENITOURINARY: Denies dysuria or hematuria. SKIN: Denies rash or itching. MUSCULOSKELETAL: Denies back pain, joint pain, or myalgia. NEUROLOGIC: Denies headache, numbness, dizziness, or weakness. PSYCHIATRIC: Denies anxiety or depression. [facility] Past Medical History Medical History Healthy female adult Surgical History Surgical History No pertinent past surgical history Family History Family History Other No pertinent family history Social History Social History Smoking status: Never smoker Substance use: never Spiritual care concerns: No Exam Narrative: GENERAL: Well-appearing, well-nourished, and in no acute distress. HEAD: Normocephalic, atraumatic. EYES: PERRLA and EOMI. CHEST: Clear to auscultation. No respiratory distress. No wheezes rales or rhonchi HEART: Regular rate and rhythm. No murmur heard. Normal peripheral pulses. EXTREMITIES: Normal range of motion. No edema. SKIN: Warm, dry, no rash. NEURO: No focal deficits. Alert and oriented x3. PSYCH: Normal mood and affect. Course Vital Signs Vital signs: Vital Signs Temperature 36.4 C 10/31/21 20:29 Pulse Rate 69 10/31/21 20:29 Respiratory Rate 16 10/31/21 20:29 Blood Pressure 141/67 H 10/31/21 20:29 Pulse Oximetry 100 10/31/21 20:29 Temperature 36.4 C 10/31/21 20:29 Pulse Rate 58 L 10/31/21 22:44 Respiratory Rate 15 10/31/21 22:44 Blood Pressure 115/78 10/31/21 22:44 Pulse Oximetry 98 10/31/21 22:44 Medical Decision Making MDM Narrative Medical decision making narrative: 25-year-old female presents to the emergency room with reproducible substernal chest pain for 4 days. Patient states the pain is worse when she moves around or takes a deep breath. CBC, CMP were unremarkable. Troponin was negative. Chest x-ray showed no acute cardiopulmonary process. Discussed findings with patient, recommended ordering a D-dimer to evaluate for possible PE due to recent COVID infection. Patient states that she no longer wants to wait for her further evaluation and wishes to leave A. Discussed risks with patient including a possible PE, worsening of condition or . Vital Signs Vital Signs: Vital Signs Temperature 36.4 C 10/31/21 20:29 Pulse Rate 69 10/31/21 20:29 Respiratory Rate 16 10/31/21 20:29 Blood Pressure 141/67 H 10/31/21 20:29 Pulse Oximetry 100 10/31/21 20:29 Temperature 36.4 C 10/31/21 20:29 Pulse Rate 58 L 10/31/21 22:44 Respiratory Rate 15 10/31/21 22:44 Blood Pressure 115/78 10/31/21 2
--- NOTE | 2021-11-01 02:57 | PC.NURSE ---
This RN was informed by ORE DIGGER that the pt wanted to leave against medical advice. I went in to the room to sign appropriate paperwork with the pt as pt was gone. Assumed pt was able to ambulate w/ steady gait. Risks of leaving AMA were discussed w/ pt by ZORA Valladares
== END 2021-11-01 00:30 | disposition left against medical advice (07) ==
PROVIDERS: Emergency Medicine; Emergency Provider Nurse Practitioner Family
DX: R07.1 Chest pain on breathing (principal); Z86.16 Personal history of COVID-19; R94.31 Abnormal electrocardiogram [ECG] [EKG]
CPT/HCPCS: 36415; 71046; 80053; 83690; 84484; 85025; 85610; 85730; 93005; 99284

== ENCOUNTER 2024-03-08 21:08 | Observation (INO) | payer OTHER, SELFPAY ==
--- NOTE | 2024-03-08 22:57 | OBADM ---
This patient, Zully Wiley, admitted to the OB room Labor/Delivery/Recovery 105 for observation. Patient/family oriented to hospital policies and general routines including ID bracelet, bed and alarms, visiting hours, pain management, procedures, bathroom and other care routines, personal items, smoking policy, room service/diet, and visiting hours. Patient/Family are encouraged to report perceived risks to care and to ask questions if they do not understand what they are told or what they should do.
--- NOTE | 2024-03-10 16:07 | PM.OBTRLD ---
OB - Triage/Final Diagnosis Visit Information Date of evaluation: 03/08/24 Reason for evaluation: threatened labor Comments/Additional reasons for admission: I have assessed the risk for this patient, Zullynaty Wiley, and determined that she would benefit from observation care.
== END 2024-03-08 23:10 | disposition home or self-care (01) ==
PROVIDERS: Admitting Provider Obstetrics & Gynecology; Visit Provider Obstetrics & Gynecology
DX: O47.1 False labor at or after 37 completed weeks of gestation (principal); Z3A.39 39 weeks gestation of pregnancy
CPT/HCPCS: G0378; G0379

== ENCOUNTER 2024-03-10 04:50 | Inpatient (IN) | payer OTHER, SELFPAY ==
[2024-03-10] VITALS (79 sets, daily range): BP systolic 105–138; BP diastolic 57–85; PULSE 40–128; RESP 18; TEMP 36.2–36.8; O2SAT 88–100; BMI 22.4
--- NOTE | 2024-03-10 06:10 | WPDANESEPP ---
Anes - Eval Pre Procedure Procedure: Labor Epidural Date/Time: 03/10/24 06:10 Surgeon: Kesha Preop Diagnosis: Labor Pain Pre Op Diagnosis: SROM Patient Data Age: 28 Gender: F Height: Weight: Allergies Allergy/AdvReac Type Severity Reaction Status Date / Time No Known Allergies Allergy Verified 10/31/21 22:40 Home Medications Medication Instructions Recorded Confirmed Type prenat.vits,dontrell,mjj-[id number]-pbeau 1 tablet 02/11/24 History : gestational age (LAINEY 03/12/24, ) Patient hx anesthesia problems: none Family hx anesthesia problems: none Results Review: All pre-operative results and documents have been reviewed as part of the pre-operative evaluation. [facility] Past Medical History Medical History Healthy female adult Surgical History Surgical History No pertinent past surgical history Family History Family History Other No pertinent family history Social History Social History Smoking status: Never smoker Substance use: never Spiritual care concerns: No Exam Day of Procedure 03/10/24 06:10 Patient weight: normal Heart: regular rate and rhythm Lungs: normal air movement Airway: Mallampati scale class II Neurological: alert and oriented
[2024-03-10 06:31] LABS: Basophils Percent Auto 0.2 % (0.2-1.2); Eosinophils Absolute Auto 0.1 K/mm3 (0-0.3); Eosinophils Percent Auto 0.8 % (0-4.4); Hematocrit 34.5 % (37.0-47.0); Hemoglobin 11.7 g/dL (12.0-15.0); Immature Granulocyte Absolute 0.08 K/mm3 (0.00-0.031); Immature Granulocyte Percent A 0.8 % (0-0.5); Lymphocytes Absolute Auto 1.76 K/mm3 (0.9-3.2); Lymphocytes Percent Auto 17.7 % (18.3-44.2); Mean Corpuscular HGB Conc 33.9 g/dl (32-36); Mean Corpuscular Volume 88.5 fl (80-100); Mean Platelet Volume 9.8 fl (7.4-10.4); Monocytes Absolute Auto 0.6 K/mm3 (0.1-0.6); Monocytes Percent Auto 5.8 % (2.6-8.5); Neutrophils Absolute Auto 7.5 K/mm3 (1.3-6.7); Neutrophils Percent Auto 74.7 % (45.5-73.1); Platelet Count Result 225 k/mm3 (150-375); Red Cell Distribution Width 13.6 % (11.5-14.5)
[2024-03-10] MEDS: LACTATED RINGERS 1,000 ML 125 ML IV CONT ×2 (06:36→07:39)
--- NOTE | 2024-03-10 06:41 | LDADM ---
This patient, Zully Wiley, was admitted to Labor/Delivery/Recovery 107 on 03/10/24 at 04:50. Plans for labor, pain management and were discussed with patient. Patient/family oriented to hospital policies and general routines including ID bracelet, bed and alarms, visiting hours, pain management, procedures, bathroom and other care routines, personal items, smoking policy, room service/diet and guest tray routines, security routines, and visiting hours. Patient/Family are encouraged to report perceived risks to care and to ask questions if they do not understand what they are told or what they should do. See OBIX for further documentation.
[2024-03-10 06:48] LABS: Rapid Plasma Reagin Non-Reactive (NonReactive)
[2024-03-10 07:25] LABS: HIV 1/2 Ab P24 Ag Result Negative (Negative)
--- NOTE | 2024-03-10 07:53 | WPDOBADMIT ---
Obstetrics - Admit Note Admission Note: record reviewed. No pertinent additions to the history and/or any subsequent changes in the physical findings that are not consistent with the expected course of the were found. Additions to the history and/or subsequent changes in the physical findings follow. admit for SROM. pt comfortable with epidural, anticipate vaginal delivery
[2024-03-10] MEDS: OXYTOCIN 30 UNITS/NS 500 ML 30 UNITS/500 ML BAG IV CONT (08:11)
[2024-03-10] MEDS: miSOPROStol 200 MCG TABLET 1000 MCG RECTAL (11:02)
--- NOTE | 2024-03-10 11:07 | PM.OBPRVD ---
OB - Vaginal Delivery Note Procedure Delivery date: 03/10/24 Delivery augmentation: Pitocin Delivery monitor: External FHT and External Uterine Route of delivery: Laceration Description: None Specimen: No Quantitative Blood Loss (ml): 175 Anesthesia type: Epidural Disposition: Floor Complications: No immediate complications Baby Date of : 03/10/24 Time of : 10:58 Gestational Age by Date: 39 gender: Male presentation: vertex position: Right Occiput Anterior Cord Vessel Description: 3 Vessels, Clamped/Cut and Delayed Cord Clamping score one minute: 8 score five minutes: 10
[2024-03-10] MEDS: OXYTOCIN 30 UNITS/NS 500 ML 30 UNITS/500 ML BAG 125 UNITS IV CONT (11:35)
[2024-03-10] MEDS: WITCH HAZEL 40 PADS 1 PAD TOPICAL (13:26)
[2024-03-10] MEDS: ACETAMINOPHEN 325 MG TABLET 650 MG PO (23:25)
[2024-03-10] MEDS: IBUPROFEN 600 MG TABLET PO (23:25)
[2024-03-11 04:25] VITALS: BP 112/65; PULSE 60; RESP 18; TEMP 35.7; O2SAT 100
[2024-03-11 05:06] LABS: Hemoglobin 9.9 g/dL (12.0-15.0)
[2024-03-11 07:25] VITALS: BP 114/68; PULSE 56; RESP 16; TEMP 36.3; O2SAT 98
[2024-03-11 07:33] VITALS: PULSE 60; RESP 18; O2SAT 100
--- NOTE | 2024-03-11 08:53 | PM.OBPNVD ---
OB - PN: Subj Subjective Date/time seen: 03/11/24 08:53 Interval history: PPD#1 Doing well Voiding without issue, passing flatus Ready for discharge home today OB - PN: Obj Data Labs 03/11/24 04:06 Labs: Laboratory Results - last 24 hr 03/11/24 04:06 Hgb 9.9 L Hct 30.0 L OB - PN A/P Plan day: 1 Plan: routine care and discharge home Time Spent With Patient Time: Total time spent is greater than 50% in coordination of care (as documented) at patient's floor/unit and/or counseling patient: Review of Systems Review of Systems: All systems reviewed & are unremarkable except as noted in HPI and below Exam Const: General: comfortable and no acute distress Orientation/consciousness: patient oriented x3 Resp: Effort & Inspection: normal respiratory effort
[2024-03-11] MEDS: ACETAMINOPHEN 325 MG TABLET 650 MG PO (11:45)
--- NOTE | 2024-03-11 13:05 | WPDANLDPN2 ---
Anes-Prog Note L&D Date/Time: 03/11/24 13:05 Comfortable throughout: labor and delivery Neuraxial method: epidural Epidural/Spinal procedure site: clean & non-tender Neuro status: Neuro function grossly intact. Cardiovascular status: normal Respiratory status: normal Airway patency: baseline Mental status: baseline Post-Op hydration status: normal Vital Signs: Last Vital Signs Temp 36.3 C L 03/11/24 07:25 Pulse 60 03/11/24 07:33 Resp 18 03/11/24 07:33 BP 114/68 03/11/24 07:25 Pulse Ox 100 03/11/24 07:33 O2 Del Method Room Air 03/11/24 07:33 Pain score (VAS): 0/10 I/O: Intake & Output 03/10/24 03/11/24 03/11/24 23:59 07:59 15:59 Intake Total 140 Balance 140 Post-procedural complaints: none Patient feedback: Patient satisfied with anesthetic care.
--- NOTE | 2024-03-12 07:40 | P.DS_ITS ---
DS: Admitting Diagnosis Discharge Date 03/11/24 Admitting Diagnosis labor DS: Discharge Diagnosis Discharge Diagnosis (1) , delivered: Code(s): O80 - Encounter for full-term uncomplicated delivery Status: Acute OB - DS: Summary OB Procedures : None OB Procedures Intrapartum: Spontaneous Vag Delivery OB Procedures: : None Peripartum Data Laceration Description: None Time Spent with Patient Time attestation: Total time spent providing and/or coordinating discharge services: Discharge Plan Discharge Attending physician on discharge: Richard Renteria Discharging Clinician: Richard Renteria Patient Disposition: Home, Self-Care Activity: may shower, as tolerated and pelvic rest Diet: as tolerated Patient Instructions: Antibiotic Form, Vaginal Delivery (DC) Stand Alone Forms: General Discharge Information Follow-up/Referrals: Barbara Ramirez CNM [Certified Nurse Certified Performance Technologist] - 4 Weeks Discharge Medications: New docusate sodium 100 mg Capsule 100 mg PO BID PRN (Reason: Constipation) Qty: 60 0RF ibuprofen 600 mg Tablet 600 mg PO Q6H PRN (Reason: Cramping) Qty: 30 0RF Continued prenat.vits,dontrell,[id number] Tablet 1 tablet PO DAILY ondansetron HCl 4 mg tablet 4 mg PO Q6H PRN (Reason: Nausea) Date of admission: 03/10/24 04:50 Primary Care Provider: UNKNOWN,DOCTOR Admitting Provider: Dayne Rebolledo Attending physician on admission: Dayne Rebolledo Condition: Stable
[2024-03-13 10:23] VITALS: BP 125/80; PULSE 91; RESP 18; TEMP 37.1; O2SAT 100
== END 2024-03-11 11:50 | disposition home or self-care (01) | DRG 560 ==
LOC: ANHOB2 03-11 11:39 → ANHLDR 03-12 08:44 → ANHOB2 03-12 08:44
PROVIDERS: Admitting Provider Obstetrics & Gynecology; Referring Provider Advanced Practice Midwife; Visit Provider Obstetrics & Gynecology
DX: O69.81X0 Labor and delivery complicated by cord around neck, without compression, not applicable or unspecified (principal); Z37.0 Single live birth; Z3A.39 39 weeks gestation of pregnancy
CPT/HCPCS: 36415; 85014; 85018; 85025; 86592; 86703; 86850; 86900; 86901; A9270; G0432; J2590; J2795; J7120

== ENCOUNTER 2024-08-27 21:50 | Emergency (ER) | payer OTHER, SELFPAY ==
--- NOTE | ~2024-08-27 | US_ITS ---
EXAMINATION: US OB <= 14 weeks fetus DATE: 08/27/2024 23:16 CONGRESSIONAL ASSISTANT INDICATION: Heavy vaginal bleeding in COMPARISON: None TECHNIQUE: Real-time transabdominal obstetric ultrasound. FINDINGS: 5 para 4 Last menstrual period is given as 06/24/2024. Estimated date of delivery by last menstrual period is 03/31/2025 The uterus measures 10.0 x 5.3 x 5.9 cm. The endometrium is markedly thickened, complex and hypervascular, measuring approximately 23 mm. No intrauterine gestation is appreciated. The right ovary measures 3.4 x 2.9 x 3.0 cm. The left ovary measures 2.7 x 2.3 x 2.9 cm. IMPRESSION: Thickened, complex, hypervascular, endometrium measuring greater than 2 cm (with active bleeding duri ng the examination). No intrauterine gestation is visualized. Reviewed, dictated and finalized at location A. RESSIONAL ASSISTANT IMPRESSION: Thickened, complex, hypervascular, endometrium measuring greater than 2 cm (wit h active bleeding during the examination). No intrauterine gestation is visualized.
[2024-08-27 21:52] VITALS: BP 103/74; PULSE 143; RESP 15; TEMP 36.3; O2SAT 100
--- OUTSIDE RECORDS SUMMARY | 2024-08-27 21:53 | XMS_ITS | Data Portability ---
Author Organization [facility] [place] Address [address] [place] [address] [place] [address] Assessment No assessment recorded. Plan of Treatment Reminders Order Date Submit Date Provider Last Modified By Organization Details Last Modified Time Details Appointments U/S OB SNEAK PEAK 2024 10:00A M ULTRASOUND Not available Not available Not available OB SCREEN 2024 10:30A M Barbara Ramirez CNM Not available Not available Not available Lab None recorde d. Referral None recorde d. Procedures None recorde d. Surgeries None recorde d. Imaging US, obstetr ic, limited 2024 025 [email or web address] [place], [address], [place], [address], 08/26/2024 17:33:08 US, obstetr ic, limited 2024 025 [place], [address], [address], [place], [address], 08/25/2024 14:56:54 US, obstetr ic, transva ginal 2024 025 [email or web address] [place], [address], [place], [address], 08/19/2024 23:00:35 US, obstetr ic, transva ginal 2024 025 [email or web address] [place], [address], [place], [address], 08/14/2024 13:12:12 US, obstetr ic, transva ginal 2024 025 [email or web address] [place], [address], [address], [place], [address], 08/11/2024 21:32:40 Medication Orders None recorde d. Patient TargetsNo targets recorded. Patient InstructionsNo instructions recorded. Reason for Referral None Reported. Results Created Date Observation Date Name Description Value Unit Range Abnormal Flag Note LastModifiedBy Organization Detail LastModifiedTime 08/11/19 25 08/11/2024 US, obste tric, trans vagin al No observ ation record ed. [email or web address] [place] [address], [place], [address], 08/11/2024 18:28:41 08/11/19 25 08/11/2024 US, obste tric, follo w-up No observ ation record ed. [email or web address] [address], [place], [address], 08/13/2024 15:20:24 08/14/19 25 08/14/2024 US, obste tric, trans vagin al No observ ation record ed. [email or web address] [place] [address], [place], [address], 08/14/2024 18:15:03 08/14/19 25 08/14/2024 US, obste tric, trans vagin al No observ ation record ed. [email or web address] [address], [place], [address], 08/14/2024 13:14:47 08/19/19 25 08/19/2024 US, obste tric, trans vagin al No observ ation record ed. [email or web address] [place] [address], [place], [address], 08/19/2024 13:46:45 08/19/19 25 08/19/2024 US, obste tric, trans vagin al No observ ation record ed. [email or web address] [address], [place], [address], 08/20/2024 00:23:12 08/22/19 25 08/22/2024 US, obste tric, 1st trime ster No observ ation record ed. [email or web address] [address], [place], [address], 08/27/2024 09:07:15 08/22/19 25 08/22/2024 US, obste tric, limit ed No observ ation record ed. [facility] [address], [place], [address], 08/22/2024 18:39:00 08/27/19 25 08/26/2024 US, obste tric, limit ed No observ ation record ed. [facility] [address], [place], [address], 08/26/2024 16:23:27 08/27/19 25 08/26/2024 US, obste tric, limit ed No observ ation record ed. [email or web address] [address], [place], [address], 08/27/2024 09:07:01 Result Notes None recorded. Problems Name Problem SNOMED Code Status Onset Date Resolution Date Notes Provider Name and Address Organization Details Recorded Time Pregnanc y 38181622 Completed 202005/13/2021 Kinga etienne, [facility] 4 13:38:54 Past pregnanc y history of pre-ecla mpsia [id number] 14839 Active last pregnanc y at 39 weeks Iwona etienne, [facility] 4 15:36:44 Past pregnanc y history of gestatio nal hyperten georgina 221376010 Completed first preg only, ASA to start Kristan john null, [facility] 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 3 13:43:15 Mixed anxiety and depressi ve disorder 008001216 Active 2023 Iwona etienne, [facility] 4 15:38:35 Pregnanc y 23992709 Completed 202303/10/2024 Kinga etienne, [facility] 4 13:38:54 Past pregnanc y history of gestatio nal hyperten georgina 737456929 Completed first pregnanc y with oligo Iwona etienne, [facility] 4 15:36:44 Past pregnanc y history of pre-ecla mpsia 7023068707 19136 Completed last pregnanc y at 39 weeks Iwona etienne, [facility] 4 15:36:44 Placenta previa marginal is 34816405 Completed resolved Iwona etienne, [facility] 4 15:36:44 Anemia 210794482 Completed 2023 1 tab slowfe daily Iwona etienne, [facility] 4 15:36:44 Hemorrha gic complica tion of pregnanc y 898448989 Completed 201710/07/2020 Other hemorrha ge in early pregnanc y;Record ed Elsewher e: No Locat ion: Mona mejia [facility] S ource: EHR Hole Filler angela: N Practi ce ID: 0001 Melo lable Time: 03:00:00 PM Bere etienne [facility] 1 11:10:15 Primigra sheng [id number] Completed 201410/07/2020 Supervis ion of normal first pregnanc y;Record ed Elsewher e: No [facility] Filler angela: N Practi ce ID: 0001 Melo lable Time: 04:00:00 PM Bere etienne, [facility] 1 11:10:30 Mental disorder during pregnanc y - baby delivere d 180321623 Completed 201410/07/2020 Postpart um mental disorder s of mother;R ecorded Elsewher e: No Locat ion: [facility] S ource: EHR Hole Filler angela: N Practi ce ID: 0001 Melo lable Time: 11:00:00 AM Bere etienne, [facility] 1 11:10:20 Gestatio n period, 31 weeks [id number] Completed 201810/07/2020 31 weeks gestatio n of pregnanc y;Record ed Elsewher e: No Locat ion: [facility] S ource: EHR Hole Filler angela: N Practi ce ID: 0001 Melo lable Time: 11:30:00 AM Bere etienne, [facility] 1 11:10:09 Transien t hyperten georgina of pregnanc y - delivere d [id number] Completed 201410/07/2020 Gestatio nal hyperten georgina;Rec orded Elsewher e: No Locat ion: [facility] S ource: EHR Hole Filler angela: N Practi ce ID: 0001 Melo lable Time: 09:30:00 AM Bere etienne, [facility] 11:10:40 Normal pregnanc y in multigra sheng [id number] 57821 Completed 201810/07/2020 Encounte r for suprvsn of normal pregnanc y, third trimeste r;Record ed Elsewher e: No [facility]at [facility] Hole Filler angela: N Brainti ce ID: 0001 Melo lable Time: 02:15:00 PM Bere etienne, [facility] [address] 11:10:[address] Concept Completed 201710/07/2020 Encntr for corporate concierge exam (general ) (routine ) w/o abn findings ;Recorde d Elsewher e: No Locat ion: [facility] S ource: EHR Hole Filler angela: N Brainti ce ID: 0001 Melo lable Time: 03:00:00 PM Bere Erlinbk etienne, [facility] 11:10:36 Female genital organ symptoms [id number] Completed 201310/07/2020 Unspecif ied symptom associat ed with female genital organs;R ecorded Elsewher e: No Locat ion: [facility] S ource: EHR Hole Filler angela: N Brainti ce ID: 0001 Melo lable Time: 02:15:00 PM Bere etienne, [facility] 11:10:06 Speciali zed medical examinat ion Completed 201310/07/2020 Gynecolo gical Examinat ion;Jared rded Elsewher e: No Locat ion: [facility] S ource: EHR Hole Filler angela: N Practi ce ID: 0001 Melo lable Time: 02:15:00 PM Bere etienne, [facility] 1 11:10:37 Uterine size for dates discrepa ncy [id number] Completed 201310/07/2020 UTERINE SIZE NEHAL-ANTE PAR;Jared rded Elsewher e: No Locat ion: [facility] S ource: EHR Hole Filler angela: N Practi ce ID: 0001 Melo lable Time: 08:30:00 AM Bere etienne [facility] 1 11:10:44 Breast lump [id number] Completed 201710/07/2020 Mass in breast;R ecorded Elsewher e: No Locat ion: [facility] S ource: EHR Hole Filler angela: N Brainti ce ID: 0001 Melo lable Time: 03:00:00 PM Bere etienne [facility] 1 11:10:00 Ultrason ography Completed 201310/07/2020 Antenata l screenin g for malforma tion using ultrason ics;Jared rded Elsewher e: No Locat ion: [facility] Denzel ce ID: 0001 Melo lable Time: 08:15:00 AM Bere etienne [facility] 11:10:41 Antenata l screenin g Completed 201310/07/2020 Antenata l screenin g for malforma tion using ultrason ics;Jared rded Elsewher e: No Locat ion: [facility] S ource: EHR Hole Filler angela: N Braineula ce ID: 0001 Melo lable Time: 08:15:00 AM Bere etienne [facility] 1 11:09:56 Congenit al malforma tion [id number] Completed 201310/07/2020 Antenata l screenin g for malforma tion using ultrason ics;Jared rded Elsewher e: No Locat ion: [facility] S ource: EHR Hole Filler angela: N Brainti ce ID: 0001 Melo lable Time: 08:15:00 AM Bere etienne [facility] 11:10:02 Rubella screenin g status [id number] Completed 201810/07/2020 Encounte r for antenata l screenin g, unspecif ied;Jared rded Elsewher e: No Locat ion: [facility] S ource: EHR Hole Filler angela: N Brainti ce ID: 0001 Melo lable Time: 03:30:00 PM Bere etienne, [facility] 11:10:31 Pregnanc y test positive [id number] Completed 201310/07/2020 Pregnanc y examinat ion or test, positive result;R ecorded Elsewher e: No Locat ion: [facility] S ource: EHR Hole Filler angela: N Brainti ce ID: 0001 Melo lable Time: 02:15:00 PM Bere etienne, [facility] 11:10:29 Antenata l screenin g for malforma tion Completed 201810/07/2020 Encounte r for antenata l screenin g for malforma tions;Re corded Elsewher e: No Locat ion: [facility] S ource: EHR Hole Filler angela: N Brainti ce ID: 0001 Melo lable Time: 03:00:00 PM Bere Kern [facility], [facility] 11:09:58 Nausea and vomiting [id number] Completed 201310/07/2020 Nausea and vomiting ;Recorde d Elsewher e: No Locat ion: [facility] S ource: EHR Hole Filler angela: N Brainti ce ID: 0001 Melo lable Time: 02:15:00 PM Bere etienne, [facility] 11:10:21 Uterine size for dates discrepa ncy Completed 201810/07/2020 Uterine size-hill e discrepa ncy, third trimeste r;Record ed Elsewher e: No Locat ion: [facility] S ource: EHR Hole Filler angela: N Brainti ce ID: 0001 Melo lable Time: 11:30:00 AM Bere etienne, [facility] 11:10:43 Gestatio n period, 16 weeks [id number] Completed 201810/07/2020 16 weeks gestatio n of pregnanc y;Record ed Elsewher e: No Locat ion: Mona jackie [facility] S ource: EHR Hole Filler angela: N Practi ce ID: 0001 Melo lable Time: 05:00:00 PM Bere etienne, [facility] 11:10:08 Postpart um care Completed 201410/07/2020 Routine postpart um follow-u p;Record ed Elsewher e: No Locat ion: Mona mejia [facility] S ource: EHR Hole Filler angela: N Brainti ce ID: 0001 Melo lable Time: 01:45:00 PM Bere etienne, [facility] 11:10:26 Poor growth affectin g manageme nt [id number] Completed 201410/07/2020 Poor growth, affectin g manageme nt of mother, antepart um conditio n or complica tion;Rec orded Elsewher e: No Locat ion: [place] mejia [facility] S ource: EHR Hole Filler angela: N Brainti ce ID: 0001 Melo lable Time: 05:00:00 PM Bere etienne, [facility] 11:10:24 Amenorrh ea [id number] Completed 201310/07/2020 Absence of menstrua tion;Rec orded Elsewher e: No Locat ion: [place]a jackie [facility] S ource: EHR Hole Filler angela: N Brainti ce ID: 0001 Melo lable Time: 02:15:00 PM Bere etienne, [facility] 11:09:54 Gestatio n period, 9 weeks [id number] Completed 201710/07/2020 9 weeks gestatio n of pregnanc y;Record ed Elsewher e: No Locat ion: [facility] S ource: EHR Hole Filler angela: N Practi ce ID: 0001 Melo lable Time: 03:00:00 PM Bere etienne [facility] 11:10:14 Screenin g for malignan t neoplasm of cervix Completed 201310/07/2020 Pap Smear;Pr actice ID: 0001 Bere etienne [facility] 11:10:33 Delivery normal [id number] Completed 201410/07/2020 Normal delivery ;Practic e ID: 0001 Bere etienne [facility] 11:10:04 Single live [id number] Completed 201410/07/2020 Mother with single liveborn ;Practic e ID: 0001 Bere Kern [facility] 11:10:34 Pregnanc y detectio n examinat ion Completed 201710/07/2020 Encounte r for pregnanc y test, result positive ;Practic e ID: 0001 Bere etienne [facility] 11:10:27 Gestatio n period, 35 weeks [id number] Completed 201810/07/2020 35 weeks gestatio n of pregnanc y;Record ed Elsewher e: No Locat ion: [facility] S ource: EHR Hole Filler angela: N Practi ce ID: 0001 Melo lable Time: 03:00:00 PM Bere etienne [facility] 11:10:11 Term pregnanc y delivere d [id number] Completed 201810/07/2020 Encounte r for full-ter m uncompli cated delivery ;Practic e ID: 0001 Bere Kern [facility] 11:10:39 Gestatio n period, 38 weeks [id number] Completed 201810/07/2020 38 weeks gestatio n of pregnanc y;Practi ce ID: 0001 Bere Kern jaimie [facility] 11:10:12 Problem Notes None recorded. Procedures Surgical History Date Name Laterality Status Provider Name and Address Organization Details Recorded Time 08/08/2023 Date of Last Pap Smear completed Iwona Hopkins [facility] 08/08/2023 15:39:16 Imaging Results Imaging Date Name Status LastModified by Organization Details LastModified Time 08/11/2024 US, obstetric, transvaginal completed [email or web address] [place] [address], [place], [address], 08/11/2024 18:28:41 08/11/2024 US, obstetric, follow-up completed [address], [place], [address], 08/13/2024 15:20:24 08/14/2024 US, obstetric, transvaginal completed [email or web address] [place] [address], [place], [address], 08/14/2024 18:15:03 08/14/2024 US, obstetric, transvaginal completed [email or web address] [address], [place], [address], 08/14/2024 13:14:47 08/19/2024 US, obstetric, transvaginal completed [email or web address] [place] [address], [place], [address], 08/19/2024 13:46:45 08/19/2024 US, obstetric, transvaginal completed [email or web address] [address], [place], [address], 08/20/2024 00:23:12 08/22/2024 US, obstetric, 1st trimester active [email or web address] [address], [place], [address], 08/27/2024 09:07:15 08/22/2024 US, obstetric, limited completed [facility] [address], [place], [address], 08/22/2024 18:39:00 08/26/2024 US, obstetric, limited completed [facility] [address], [place], [address], 08/26/2024 16:23:27 08/26/2024 US, obstetric, limited active [email or web address] [address], [place], [address], 08/27/2024 09:07:01 Procedure Notes None recorded. Medical Equipment None Reported. Allergies No known drug allergies Medications Name Sig Start Date Stop Date Status Note LastModified by Organization Details LastModified Time nifedipin e ER 30 mg tablet,ex tended release 24 hr TAKE 1 TABLET BY MOUTH EVERY DAY 08/19 completed Not Available Not Available Not Available venlafaxi ne ER 37.5 mg capsule,e xtended release 24 hr TAKE 1 CAPSULE BY MOUTH EVERY DAY 08/08 completed Not Available Not Available Not Available ondansetr on HCl 4 mg tablet TAKE 1 TABLET BY MOUTH EVERY 4 TO 6 HOURS NEEDED FOR NAUSEA 04/23 completed Not Available Not Available Not Available famotidin e 40 mg tablet TAKE 1 TABLET BY MOUTH DAILY FOR 7 DAYS 01/13 completed Not Available Not Available Not Available prednison e 20 mg tablet TAKE 2 TABLETS BY MOUTH DAILY FOR 5 DAYS 01/13 completed Not Available Not Available Not Available acetamino phen 300 mg-codein e 30 mg tablet TAKE 1 TABLET BY MOUTH EVERY 4 HOURS NEEDED FOR PAIN 03/22 completed Not Available Not Available Not Available Reglan 10 mg tablet take 1 tablet by oral route every 8 hours as needed for nausea 01/21 completed Prescrib ed Elsewher e: No Locat ion: [facility] odify By: [email or web address] Mejia rashad DateTime : 01/22/20 14 02:15:00 PM Not Available Not Available Not Available Zofran 8 mg tablet take 1 tablet by oral route every 8 hours 09/04 completed Prescrib ed Elsewher e: No Locat ion: [facility] mejia [facility] odify By: fahad Wagner r DateTime : 02/27/20 14 09:00:00 AM Not Available Not Available Not Available metoclopr amide 5 mg tablet Take 1 tablet 4 times a day by oral route as directed . active Not Available Not Available No t Available nifedipin e 10 mg capsule take 2 Capsule by oral route every 6 hours 10/07 completed Prescrib ed Elsewher e: Yes Loca tion: [facility] mejia [facility] odify By: sheree allison DateTime : 09/12/19 15 11:00:00 AM Not Available Not Available Not Available Compazine 5 mg tablet take 1 tablet by oral route every 4 hours as needed for nausea and vomiting 10/07 completed Prescrib ed Elsewher e: No Locat ion: [facility] jackie [facility] odify By: laron aponte DateTime : 05/03/20 18 03:00:00 PM Not Available Not Available Not Available Flagyl 500 mg tablet Take 1 tablet twice a day by oral route for 7 days. 12/22 completed Not Available Not Available Not Available cephalexi n 500 mg capsule TAKE ONE CAPSULE BY MOUTH FOUR TIMES DAILY active Not Available Not Available No t Available promethaz ine 25 mg tablet TAKE 1 TABLET BY MOUTH EVERY 4 HOURS 05/13 completed Not Available Not Available Not Available fluoxetin e 10 mg capsule TAKE 1 CAPSULE BY MOUTH EVERY DAY 09/25 completed Not Available Not Available Not Available hydroxyzi ne HCl 25 mg tablet TAKE 1 TABLET BY MOUTH THREE TIMES DAILY active Not Available Not Available No t Available Vitamin D2 1,250 mcg (50,000 unit) capsule take 1 capsule by oral route every week for 8 weeks. 09/04 completed Prescrib ed Elsewher e: No Locat ion: [facility] mejia [facility] odify By: fahad Wagner r DateTime : 06/29/19 15 01:04:47 PM Not Available Not Available Not Available Zoloft 25 mg tablet take 1 tablet by oral route every day 10/02 completed Prescrib ed Elsewher e: No Locat ion: Mona mejia [facility] odify By: sheree Jain er DateTime : 09/12/19 15 11:00:00 AM Not Available Not Available Not Available sertralin e 50 mg tablet TAKE 1 TABLET BY MOUTH EVERY DAY active Not Available Not Available No t Available escitalop rehan 20 mg tablet TAKE 1 TABLET BY MOUTH EVERY DAY 03/22 completed Not Available Not Available Not Available cyclobenz aprine 5 mg tablet TAKE 1 TABLET BY MOUTH EVERY 8 HOURS NEEDED 12/18 completed Not Available Not Available Not Available aspirin 05/13 completed Not Available Not Available Not Available promethaz ine 11/24 completed Not Available Not Available Not Available 05/13 completed Not Available Not Available Not Available butalbita l-acetami nophen-ca ffeine 50 mg-300 mg-40 mg capsule Take 1 capsule every 4 hours by oral route as needed. 12/18 completed Not Available Not Available Not Available Microgest in 24 FE 1 mg-20 mcg (24)/75 mg (4) tablet Take 1 tablet every day by oral route. 12/13 completed Not Available Not Available Not Available One Daily 27 mg iron-800 mcg tablet take 1 tablet by oral route every day 09/04 completed Prescrib ed Elsewher e: Yes Loca tion: [facility] mejia [facility] odify By: fahad Wagner r DateTime : 02/27/20 14 09:00:00 AM Not Available Not Available Not Available 28 mg-800 mcg tablet 10/07 completed Prescrib ed Elsewher e: Yes Loca tion: Mona mejia [facility] odify By: [email or web address] Encount er DateTime : 08/08/19 19 04:00:00 PM Not Available Not Available Not Available Zurzuvae 25 mg capsule 2023 active Not Available Not Available Not Avai lable Vitals None Recorded Social History Question Answer Notes LastModified by Organizat ion Details LastModified Time Tobacco Smoking Status Former Smoker Iwona Hopkins [facility], [facility] 08/08/2023 15:42:24 What Is Your Level Of Alcohol Consumption? None [email or web address] Information not available 08/08/2023 If You Are , What Was Your Level Of Alcohol Consumption Prior To ? Occasional [email or web address] Information not available 03/30/2021 Are You Blind Or Do You Have Difficulty Seeing? No [email or web address] Information not available 03/30/2021 What Is Your Level Of Caffeine Consumption? Occasional [email or web address] Information not available 03/30/2021 In The 14 Days Before Symptom Onset, Have You Had Close Contact With A Laboratory-confir med COVID-19 While That Case Was Ill? No [email or web address] Information not available 03/30/2021 In The 14 Days Before Symptom Onset, Have You Had Close Contact With A Person Who Is Under Investigation For COVID-19 While That Person Was Ill? No [email or web address] Information not available 03/30/2021 Have You Been To An Area Known To Be High Risk For COVID-19? No Information not available 03/30/2021 Are You Deaf Or Do You Have Serious Difficulty Hearing? No [email or web address] Information not available 03/30/2021 What Type Of Diet Are You Following? REGULAR [email or web address] Information not available 03/30/2021 Have You Ever Been Counseled For Unhealthy Alcohol Use? No [email or web address] Information not available 03/30/2021 Do You Use Your Seat Belt Or Car Seat Routinely? Yes Information not available 03/30/2021 Do You Have Smoke And Carbon Monoxide Detectors In Your Home? Yes [email or web address] Information not available 03/30/2021 Do You Feel Stressed (tense, Restless, Nervous, Or Anxious, Or Unable To Sleep At Night)? [id number] Information not available 03/30/2021 Do You Use Any Illicit Or Recreational Drugs? No Information not available 03/30/2021 Do You Use Sunscreen Routinely? Yes [email or web address] Information not available 03/30/2021 Has Tobacco Cessation Counseling Been Provided? No [email or web address] Information not available 03/30/2021 Do You Or Have You Ever Used Any Other Forms Of Tobacco Or Nicotine? No [email or web address] Information not available 03/30/2021 Sex: Unknown Functional Status Question Answer Note LastModified by Organizat ion Details LastModified Time Do you have difficulty walking or climbing stairs? No [email or web address] Information not available 08/08/2023 Are you able to walk? YESWOREST [email or web address] Information not available 03/30/2021 Are you able to care for yourself? Yes [email or web address] Information not available 08/08/2023 Do you have difficulty dressing or bathing? No [email or web address] Information not available 08/08/2023 What is your exercise level? Occasional [email or web address] Information not available 03/30/2021 Mental Status None recorded. Family History Relationship Description Onset Age of this Age Resolved Age Notes LastModified by Organization Details LastModified Time Maternal Aunt Malignant tumor of ovary [email or web address] Not available 2020 11:29:12 Maternal Aunt Malignant tumor of cervix [email or web address] Not available 2020 11:29:24 Maternal Aunt Seizure disorder [email or web address] Not available 2020 11:29:35 Maternal Grandmother Malignant tumor of lung [email or web address] Not available 2020 11:29:52 Maternal Grandmother Anemia [email or web address] Not available 10/07 11:31:23 Maternal Grandmother Disorder of thyroid gland [email or web address] Not available 2020 11:31:32 Maternal Grandmother Diabetes mellitus [email or web address] Not available 2020 11:31:49 Maternal Grandmother Malignant tumor of breast [email or web address] Not available 2020 11:32:00 Maternal Grandmother Leukemia [email or web address] Not available 15:40:47 Mother Anemia [email or web address] Not available 0 10/07/2020 11:30:20 Mother Cyst of ovary [email or web address] Not available 2020 11:31:00 Mother Malignant tumor of cervix [email or web address] Not available 2020 11:31:12 Son Primate erythroparvo virus 1 infection [email or web address] Not available 12/18 15:57:29 Medical History Condition Response Allergies (Food, seasonal, environmental ) N Other N Drug/Latex Allergies/Reactions N Blood Transfusion N Breast Cancer N Dermatologic Disorders N Lung Disease N Defects or Inherited Disease N Breast Problem N Gestational Diabetes N Hematologic disorders N Anesthesia Complications N History of STI N Deep Vein Thrombosis N Polycystic ovary syndrome N Anxiety Disorder Y Autoimmune disease N Arthritis N Polyps N Infertility N Acid Reflux (GERD) N History of abnormal pap N Cancer N Varicosities N Stroke N Neurologic/Epilepsy N Endometriosis N High Cholesterol N Fibromyalgia N Headaches N Kidney Disease N Heart Problems N Thyroid Problems N Kidney or Bladder Problems N GI Problems N Eating Disorder N Anemia N Art (IVF or FET) N Psychiatric Illness Y Ovarian Cancer N Diabetes N Pulmonary (TB, Asthma) N Hepatitis/Liver Disease N No Past Medical History N Eczema N Urinary Tract Infection N Abuse/Domestic Violence N Asthma N Trauma/Violence N Depression/ depression Y Heart Disease N Pre-Eclampsia Y Hypertension Y Osteoporosis N Thrombophilias N Gynecological History Statement/Question Response Abnormal Pap N Date of Last Mammogram Date of LMP 06/01/2023 Sexually Active? Y STIs/STDs N Date of DEXA bone scan Date of Last Pap Smear 08/08/2023 Sexual Problems? N Current Control Method None Obstetrics History GPAL:G 5 P 4 0 1 4 Type Value Full Term 4 Spontaneous 1 Living 4 Total 5 Past Encounters Encounter ID Performer Location Encounter Start Date Encounter Closed Date Diagnosis/Indication Diagnosis SNOMED-CT Code Diagnosis ICD10 Code Diagnosis Note [id number] Mini Jin [facility] [address] [address] 10/07/2020 14:34:10 10/07/2020 15:34:35 Gynecologic examination 98649098 Z01.419 test positive 169712380 Z32.01 Risk factors addressed: Tobacco Cessation, Safe Sexual Practices, environmen oscar, work hazards, travel restrictio ns, seat belt use. Eat a health well balanced diet, avoid alcohol, tobacco, and street drugs. Engage in daily low impact exercise, avoid temperatur e extremes, and cat, rodent, and bird feces. Avoid travel to areas where zika virus is a concern. Offered cf/sma/nip t. Desires all 3. Handouts given and discussed with patient. Childbirth classes recommende d. Promethazi ne has really helped nausea and vomiting. New OB sheet given. If previous , counseling . Pt verbalizes that she understand s the importance of above instructio ns. All questions were answered. Patient reminded to have annual well woman examinatio n and address [facility] . [id number] Maddy Smart [facility] [address],[place] [address] 10/07/2020 14:33:37 10/08/2020 08:29:23 [id number] [facility] [address],[place] [address] 10/27/2020 12:00:19 10/27/2020 13:23:26 screening 093964909 Z36.82 [id number] Miradna Sanchez MD [facility] [address],[place] [address] 10/27/2020 12:01:12 10/27/2020 13:23:06 Routine care 299793484 Z34.91 Past pregn radha history of pre-eclampsia [id number] 60988 Z87.59 [id number] Miranda Sanchez MD [facility] [address],[place] [address] 11/24/2020 12:51:15 11/24/2020 13:17:20 Routine care 057373859 Z34.91 [id number] [facility] [address],[place] [address] 12/22/2020 11:11:22 12/22/2020 12:14:30 screening for malformation 991274609 Z36.3 [id number] Miranda Snachez MD [facility] [address],[place] [address] 12/22/2020 11:11:37 12/22/2020 12:53:01 Routine care 891270175 Z34.91 Past pregn radha history of pre-eclampsia 6670475605 93045 Z87.59 [id number] Miranda Sanchez MD [facility] [address],[place] [address] 01/19/2021 14:49:19 01/19/2021 15:38:23 Past history of pre-eclampsia 1797298229 35568 Z87.59 Routine an tenatal care 267474071 Z34.91 [id number] Mini Jin [facility] [address],[place] [address] 02/16/2021 12:03:38 02/16/2021 14:14:01 Routine care 564320146 Z34.93 [id number] Miranda Sanchez MD [facility] [address],[place] [address] 03/04/2021 10:57:42 03/04/2021 11:41:28 Routine care 111871540 Z34.91 [id number] [facility] [address],[place] [address] 03/15/2021 11:56:52 03/15/2021 17:34:25 Routine care 424329634 Z34.93 [id number] Barbara Ramirez [facility] [address],[place] [address] 03/30/2021 12:29:21 03/30/2021 12:48:58 Routine care 546999837 Z34.93 [id number] Jacqueline Bronson [facility] [address],[place] [address] 04/11/2021 14:29:31 04/11/2021 16:12:23 Past history of pre-eclampsia 4025083120 03990 Z87.59 Z3A.36 [id number] Barbara Ramirez [facility] [address],[place] [address] 04/12/2021 10:26:43 04/12/2021 11:16:22 Routine care 119639405 Z34.93 [id number] Mini Jin [facility] [address],[place] [address] 04/20/2021 12:30:13 04/20/2021 12:52:44 [id number] Miranda Sanchez MD [facility] [address],[place] [address] 04/26/2021 11:44:38 04/26/2021 12:09:50 Routine care 800235543 Z34.91 [id number] MD Romana Mcmillan [address],[place] [address] 05/03/2021 11:41:23 05/03/2021 12:41:20 Routine care 725288952 Z34.91 [id number] MD Romana Mcmillan [address],[place] [address] 05/13/2021 10:44:42 05/13/2021 15:47:26 -induced hypertension 4799618227 9100 O13.9 - induced hypertension 46887349 O13.9 [id number] MD Romana Mcmillan [address],[place] [address] 05/17/2021 11:03:28 05/23/2021 18:17:14 -induced hypertension 1835410636 9100 O13.9 [id number] MD Romana Mcmillan [address],[place] [address] 08/19/2021 15:30:58 08/19/2021 16:02:44 depression 17805877 F53.0 Essential hypertension 39951670 I10 [id number] MD Romana Mcmillan [address],[place] [address] 01/13/2022 12:44:38 01/13/2022 16:25:33 Mixed anxiety and depressive disorder 174851396 F41.8 [id number] MD Romana Mcmillan [address],[place] [address] 03/22/2022 11:01:40 03/22/2022 11:40:25 Depressive disorder 77612575 F32.A Gynecologi c examination 89259267 Z01.419 [id number] MD Romana Mcmillan [address],[place] [address] 10/16/2022 12:33:18 10/16/2022 13:58:05 Premenstrual dysphoric disorder 740629 F32.81 Initial pr escription of oral contraception 928836590 Z30.011 Irregular intermenstrual bleeding 59550497 N92.1 [id number] Jacqueline Bronson [facility] [address],[place] [address] 12/13/2022 14:57:28 12/13/2022 16:30:34 Uncertain viability of 775584737 O36.80X0 Z3A.01 [id number] Barbara Ramirez [facility] [address],[place] [address] 12/13/2022 14:57:53 12/13/2022 16:30:11 Threatened miscarriage 92614397 O20.0 [id number] Rae Mcintyre [facility] [address],[place] [address] 08/08/2023 14:30:53 08/08/2023 15:09:05 [id number] Barbara Ramirez [facility] [address],[place] [address] 08/08/2023 14:31:48 08/08/2023 16:02:22 Amenorrhea 28498097 N91.2 [id number] [facility] [address],[place] [address] 08/29/2023 15:01:05 08/29/2023 15:43:43 screening 510723550 Z36.82 Z3A.12 [id number] Iwona Hopkins [facility] [address],[place] [address] 08/29/2023 15:01:18 08/29/2023 16:29:56 Routine care 108337906 Z34.93 Gestation period, 12 weeks 82454541 Z3A.12 [id number] Maddy Smart [facility] [address],[place] [address] 09/11/2023 11:16:26 09/11/2023 11:55:16 [id number] Barbara Ramirez [facility] [address],[place] [address] 09/26/2023 15:16:12 09/26/2023 15:45:58 Routine care 296781916 Z34.93 [id number] Rae Mcintyre [facility] [address],[place] [address] 10/24/2023 14:57:52 10/24/2023 16:03:37 screening for malformation 067564256 Z36.3 O44.40 Z3A.20 [id number] Barbara Ramirez [facility] [address],[place] [address] 10/24/2023 14:58:14 10/24/2023 16:36:08 Routine care 935693741 Z34.93 Muscle pain 17443464 M79 .10 [id number] [facility] [address],[place] [address] 11/21/2023 15:37:44 11/22/2023 09:29:14 screening 310966607 Z36.2 O44.22 Z3A.24 [id number] Barbara Ramirez [facility] [address],[place] [address] 11/21/2023 15:38:06 11/22/2023 09:29:56 Routine care 316131283 Z34.93 [id number] [facility] [address],[place] [address] 12/19/2023 15:03:14 12/19/2023 16:04:42 Low lying placenta 662116660 O44.43 Z3A.28 [id number] Barbara Ramirez [facility] [address],[place] [address] 12/19/2023 15:03:34 12/19/2023 16:41:27 Routine care 575690099 Z34.93 [id number] Barbara Ramirez [facility] [address],[place] [address] 01/02/2024 16:17:30 01/03/2024 10:22:24 Routine care 715553984 Z34.93 continue vitamin Past pregn radha history of pre-eclampsia 5618118722 31959 Z87.59 monitor sxs [id number] [facility] [address],[place] [address] 01/16/2024 14:57:29 01/16/2024 15:52:11 Uterine size for dates discrepancy 325695731 O26.843 Z3A.32 [id number] Barbara Ramirez [facility] [address],[place] [address] 01/16/2024 14:57:50 01/16/2024 16:01:42 Gestation period, 32 weeks 5770934 Z3A.32 continue vitamin [id number] [facility] [address],[place] [address] 01/30/2024 15:45:08 01/30/2024 16:19:49 Gestation period, 34 weeks 16315367 Z3A.34 continue vitamin [id number] Barbara Ramirez [facility] [address],[place] [address] 02/13/2024 15:49:04 02/13/2024 16:15:26 Gestation period, 36 weeks 41379710 Z3A.36 [id number] [facility] [address],[place] [address] 02/20/2024 14:01:11 02/20/2024 14:44:19 Gestation period, 37 weeks 17637419 Z3A.37 continue vitamin [id number] [facility] [address],[place] [address] 02/27/2024 17:14:06 02/27/2024 18:03:03 Gestation period, 38 weeks 16567201 Z3A.38 continue vitamin [id number] [facility] [address],[place] [address] 03/05/2024 17:27:38 03/05/2024 19:09:28 Gestation period, 39 weeks 04517918 Z3A.39 continue vitamin [id number] Barbara Ramirez [facility] [address],[place] [address] 04/23/2024 15:18:41 04/23/2024 17:13:30 depression 95792036 F53.0 start linda, appt with Ishan SALCEDO APN for follow up and to discuss treatment of PMDDcall if desires controldis cussed risk of somnolence with herself and baby especially with breast feedingde lines [facility] [id number] [facility] [address],[place] [address] 08/11/2024 14:58:52 08/11/2024 15:34:34 Threatened miscarriage 73415332 O20.0 Z3A.01 [id number] [facility] [address],[place] [address] 08/14/2024 12:25:57 08/14/2024 13:00:04 Threatened miscarriage 49716225 O20.0 O36.8910 Z3A.01 [id number] [facility] [address],[place] [address] 08/19/2024 12:25:10 08/19/2024 13:04:15 Threatened miscarriage 89951412 O20.0 O36.8910 Z3A.08 [id number] [facility] [address],[place] [address] 08/22/2024 16:41:06 08/25/2024 14:56:54 Spotting per vagina in 038406775 O26.859 O20.0 Z3A.08 [id number] [facility] [address],[place] [address] 08/26/2024 15:08:16 08/26/2024 15:36:12 Threatened miscarriage 95165750 O20.0 O36.8910 Z3A.09 Health Concerns Section Related Observation LastModified by Organization Detai ls LastModified Time None Recorded Concern Status LastModified by Organization Details LastModified Time None Recorded Advance Directives Directive None Recorded Payers Encounter Date Sequence Insurance Name Policy Number Policy Arredondo Covered Member ID Arredondo Member ID Guarantor Name 08/11/2024 1 [facility] (MEDICAID HMO) [id number] Zully Saurabh [id number] Zully Saurabh 08/14/2024 1 [facility] (MEDICAID HMO) [id number] Zully Saurabh [id number] Zully Saurabh 08/19/2024 1 [facility] (MEDICAID HMO) [id number] Zully Saurabh [id number] Zully Saurabh 08/22/2024 1 [facility] (MEDICAID HMO) [id number] Zully Saurabh [id number] Zully Saurabh 08/26/2024 1 [facility] (MEDICAID HMO) [id number] Zully Saurabh [id number] Zully Saurabh OBGyn Episode Ob Episode Information Episode Created Date Number of Fetuses Patient Bloodtype Patient rh Status Prepregnancy Weight lbs Domestic Partner Domestic Partner Phone Father Name Boilers Inspector Status 10/28/19 21 1 O Positive 129 CLOSED Fetus Data First Name Last Name Admitted to NICU Weight (g) Sex Living Outcome Pediatric Complications Fetus ID Race Codes Race Delivery Type Jayla 3231.84 3 F true Full Term 9619 Vaginal Delivery Problems Problem Notes declines vaccines Problem Name Start Date End Date Resolution Snomed Code Not e Past history of gestational hypertension [id number] fir st preg only, ASA to start Lainey Calculation Initial Lainey Date Initial Exam Date Initial Exam Provider Initial Ultrasound Date Last Menstrual Period Date Ultra Sound Weeks Gestation 05/09/2021 10/27/2020 10/07/2020 08/02/2020 8 Eighteen To Twenty Week Lainey Update Ultra Sound Date Fundal Height At Umbil Quickening Date Ultra Sound Latest Weeks Gestation Final Lainey Confirmed By Final Lainey Confirmed Date Final Lainey Date Ultra Sound Latest Days Gestation 0 [email or web address] 10/27/2020 05/09/20 21 0 Pre- Flowsheet Flowsheet Date 10/27/2020 Alonzo Score Blood Edema Fundus Height Fundus Units Glucose Ketones Leukocytes Nitrite Labor Signs Protein Cervic Dilation Cervic Effacement Cervic Station Type Weight in lbs Pre/Post Dialysis Refused BP Diastolic BP Location Tested BP Systolic BP Type Fetus Heart Rate Present Fetus Movement Comments Flowsheet Date 10/27/2020 Alonzo Score Blood Edema Fundus Height Fundus Units Glucose Ketones Leukocytes Nitrite Labor Signs Protein Cervic Dilation Cervic Effacement Cervic Station neg none trace Type Weight in lbs Pre/Post Dialysis Refused Weight 122.414196329444 BP Diastolic BP Location Tested BP Systolic BP Type 86 136 Fetus Heart Rate Present A 160 Fetus Movement A No Comments Zully is a 24yo at 1 2w2d presenting for care. Her first was complicated by oligohydramnios and high blood pressures requiring a longer hospital stay, but she is unsure if it was PreE or gHTN. SHe will start daily ASA. She always has significant N/V with her pregnancies. SHe is taking promethazine and it is helping some. Has some good days and bad days, went for IV fluids once. Precautions given. US today normal NT, small KJ, discussed.NIPT and labs today. Flowsheet Date 11/24/2020 Alonzo Score Blood Edema Fundus Height Fundus Units Glucose Ketones Leukocytes Nitrite Labor Signs Protein Cervic Dilation Cervic Effacement Cervic Station neg none trace Type Weight in lbs Pre/Post Dialysis Refused Weight 128.414301426709 BP Diastolic BP Location Tested BP Systolic BP Type 76 123 Fetus Heart Rate Present A 145 Fetus Movement A Yes Comments Doing great. Taking ASA. AFP today. Anatomy next visit. Flowsheet Date 12/22/2020 Alonzo Score Blood Edema Fundus Height Fundus Units Glucose Ketones Leukocytes Nitrite Labor Signs Protein Cervic Dilation Cervic Effacement Cervic Station Type Weight in lbs Pre/Post Dialysis Refused BP Diastolic BP Location Tested BP Systolic BP Type Fetus Heart Rate Present Fetus Movement Comments Flowsheet Date 12/22/2020 Alonzo Score Blood Edema Fundus Height Fundus Units Glucose Ketones Leukocytes Nitrite Labor Signs Protein Cervic Dilation Cervic Effacement Cervic Station neg none trace Type Weight in lbs Pre/Post Dialysis Refused Weight 131.242798670706 BP Diastolic BP Location Tested BP Systolic BP Type 73 114 Fetus Heart Rate Present A 140 Fetus Movement A Yes Comments Doing very well. Lots of FM. Anatomy US today complete and wnl. Has not had baseline PIH labs- can do with 28 week labs. Flowsheet Date 01/19/2021 Alonzo Score Blood Edema Fundus Height Fundus Units Glucose Ketones Leukocytes Nitrite Labor Signs Protein Cervic Dilation Cervic Effacement Cervic Station neg none 24 trace Type Weight in lbs Pre/Post Dialysis Refused Weight 134.604365103696 BP Diastolic BP Location Tested BP Systolic BP Type 76 119 Fetus Heart Rate Present A 145 Fetus Movement A Yes Comments Doing well. Great FM. Thinks starting to get PUPPS but not itchy. Will try hydrocortisone. GCT next visit. Rh pos. Discussed and encouraged Tdap after 27 weeks. Flowsheet Date 02/16/2021 Alonzo Score Blood Edema Fundus Height Fundus Units Glucose Ketones Leukocytes Nitrite Labor Signs Protein Cervic Dilation Cervic Effacement Cervic Station none 27 trace Type Weight in lbs Pre/Post Dialysis Refused Weight 140.293407375956 BP Diastolic BP Location Tested BP Systolic BP Type 78 122 Fetus Heart Rate Present A 137 Fetus Movement A Yes Comments Doing well. Encouraged tdap and flu. 1 hour gtt today. Flowsheet Date 03/04/2021 Alonzo Score Blood Edema Fundus Height Fundus Units Glucose Ketones Leukocytes Nitrite Labor Signs Protein Cervic Dilation Cervic Effacement Cervic Station neg none 28 trace Type Weight in lbs Pre/Post Dialysis Refused Weight 138.691632066387 BP Diastolic BP Location Tested BP Systolic BP Type 75 113 Fetus Heart Rate Present A 130 Fetus Movement A Yes Comments Doing well. Passed 3 hr. Doi ng Tdap in next couple weeks. Also discussed and encouraged COVID vaccine- pt will do. Borderline S<D- will monitor. Flowsheet Date 03/15/2021 Alonzo Score Blood Edema Fundus Height Fundus Units Glucose Ketones Leukocytes Nitrite Labor Signs Protein Cervic Dilation Cervic Effacement Cervic Station none 31 Type Weight in lbs Pre/Post Dialysis Refused Weight 139.397332330345 BP Diastolic BP Location Tested BP Systolic BP Type 73 109 Fetus Heart Rate Present A 150 Fetus Movement A Yes Comments Doing well. Pt is still cons idering covid vaccine. Encouraged and explained acog recommendation. Flowsheet Date 03/30/2021 Alonzo Score Blood Edema Fundus Height Fundus Units Glucose Ketones Leukocytes Nitrite Labor Signs Protein Cervic Dilation Cervic Effacement Cervic Station neg trace 31 trace Type Weight in lbs Pre/Post Dialysis Refused Weight 143.430820583450 BP Diastolic BP Location Tested BP Systolic BP Type 79 126 Fetus Heart Rate Present A 155 Fetus Movement A Yes Comments patient states that having s ome pain, contractions, swelling, nausea and vomiting. pt declines flu tdap and covid after rec, f/u 2 weeks growth us and plan gbs, precautions reviewed, schedule preadmit Flowsheet Date 04/11/2021 Alonzo Score Blood Edema Fundus Height Fundus Units Glucose Ketones Leukocytes Nitrite Labor Signs Protein Cervic Dilation Cervic Effacement Cervic Station Type Weight in lbs Pre/Post Dialysis Refused BP Diastolic BP Location Tested BP Systolic BP Type Fetus Heart Rate Present Fetus Movement Comments Flowsheet Date 04/12/2021 Alonzo Score Blood Edema Fundus Height Fundus Units Glucose Ketones Leukocytes Nitrite Labor Signs Protein Cervic Dilation Cervic Effacement Cervic Station neg none trace Type Weight in lbs Pre/Post Dialysis Refused Weight 147.809515429480 BP Diastolic BP Location Tested BP Systolic BP Type 80 129 Fetus Heart Rate Present Fetus Movement A Yes Comments patient is having contractio ns, back pain, nausea and vomiting. precautions reviewed cervix closed, gbs done Flowsheet Date 04/20/2021 Alonzo Score Blood Edema Fundus Height Fundus Units Glucose Ketones Leukocytes Nitrite Labor Signs Protein Cervic Dilation Cervic Effacement Cervic Station trace 35 trace Type Weight in lbs Pre/Post Dialysis Refused Weight 147.896880150081 BP Diastolic BP Location Tested BP Systolic BP Type 74 112 Fetus Heart Rate Present A 131 Fetus Movement A Yes Comments Doing well. Irregular/occasi onal contractions. Pre admit done. Declined vaccines. Pedi is Dr [place]. Bottle feeding. Having a girl. Planning epidural for pain management. Declined cervical exam today. Size less than dates but just had normal growth u/s. Flowsheet Date 04/26/2021 Alonzo Score Blood Edema Fundus Height Fundus Units Glucose Ketones Leukocytes Nitrite Labor Signs Protein Cervic Dilation Cervic Effacement Cervic Station neg trace 34 trace 0cm 50% -2 Type Weight in lbs Pre/Post Dialysis Refused Weight 147.359619829823 BP Diastolic BP Location Tested BP Systolic BP Type 78 121 Fetus Heart Rate Present A 140 Fetus Movement A Yes Comments Some irregular contractions. Great FM. Prefers to await spontaneous labor at this time, but may want to schedule IOL if still next week. Precautions given. Flowsheet Date 05/03/2021 Alonzo Score Blood Edema Fundus Height Fundus Units Glucose Ketones Leukocytes Nitrite Labor Signs Protein Cervic Dilation Cervic Effacement Cervic Station neg trace 34 trace 2cm 50% -1 Type Weight in lbs Pre/Post Dialysis Refused Weight 151.109270766045 BP Diastolic BP Location Tested BP Systolic BP Type 75 118 Fetus Heart Rate Present A 140 Fetus Movement A Yes Comments Doing well. Not a lot of con tractions. Wants to schedule IOL now. Precautions given. GBS neg. Flowsheet Date 05/13/2021 Alonzo Score Blood Edema Fundus Height Fundus Units Glucose Ketones Leukocytes Nitrite Labor Signs Protein Cervic Dilation Cervic Effacement Cervic Station Type Weight in lbs Pre/Post Dialysis Refused Weight 138.301013106917 BP Diastolic BP Location Tested BP Systolic BP Type 102 155 98 152 Fetus Heart Rate Present Fetus Movement Comments Menstrual History Last Menstrual Date Menses Monthly On Bcp Conception Prior Menses Frequency Hcg Plus Date Menarche Onset Age 0208/02/2020 Genetic Screening And Infection History Question Response Note Mental Retardation/Autism false Patient's Age Will Be 35 Years Or Older At Estim ated Date of Delivery false Thalassemia (Palauan, Citizen Of [place], Mediterranean, Or Background): MCV < 80 false Neural Tube Defect (Meningomyelocele, Spina Bifi da, Or Anencephaly) false Congenital Heart Defect false Down Syndrome false Mendez-Sachs (eg, Sabianist, Cajun, Ukrainian-Emirati) f alse Rupali Disease false Sickle Cell Disease Or Trait () false Hemophilia Or Other Blood Disorders false Muscular Dystrophy false Cystic Fibrosis false Mcintosh's Chorea false Intellectual Disability/Autism false If Yes, Was Person Tested For Fragile X? false Other Inherited Genetic Or Chromosomal Disorder false Maternal Metabolic Disorder (eg, Type 1 Diabetes , PKU) false Patient Or Baby's Father Had A Child With Defects Not Listed Above false Recurrent Loss, Or A Stillbirth false Medications (including Suppl ements, Vitamins, Herbs, OTC Drugs), Illicit/Recreational Drugs, Alcohol false If Yes, Agent(s) And Strength/Dosage false Any Other Genetic History false Live With Someone With TB Or Exposed To TB false Patient Or Partner Has History Of Genital Herpes false Rash Or Viral Illness Since Last Menstrual Perio d false History Of STD, Gonorrhea, Chlamydia, HPV, Syphi lis false Other Infection History false History of HIV false History of Hepatitis false Prior GBS-infected child false Hemoglobinopathy Or Carrier false Other Structural Defect false Recent Travel History Outside of Country false Delivery Information Delivery Date Delivery Type Labor Anesthesia Weeks Gestation Incision Type Labor Labor Length Hrs Delivered By Post Complications Tubal Sterilization Discharge Date Comments 1 Indu[facility] d [facility] 39.4 Miranda Reyes MD Discharge Information Feeding Method Contraceptive Method Maternal HG B and HCT Levels Ob Episode Information Episode Created Date Number of Fetuses Patient Bloodtype Patient rh Status Prepregnancy Weight lbs Domestic Partner Domestic Partner Phone Father Name Boilers Inspector Status 10/08/19 21 1 CLOSED Fetus Data First Name Last Name Admitted to NICU Weight (g) Sex Living Outcome Pediatric Complications Fetus ID Race Codes Race Delivery Type 2891.64 9 M Full Term 9103 Vaginal Delivery Lainey Calculation Initial Lainey Date Initial Exam Date Initial Exam Provider Initial Ultrasound Date Last Menstrual Period Date Ultra Sound Weeks Gestation 0 Eighteen To Twenty Week Lainey Update Ultra Sound Date Fundal Height At Umbil Quickening Date Ultra Sound Latest Weeks Gestation Final Lainey Confirmed By Final Lainey Confirmed Date Final Lainey Date Ultra Sound Latest Days Gestation 0 0 Menstrual History Last Menstrual Date Menses Monthly On Bcp Conception Prior Menses Frequency Hcg Plus Date Menarche Onset Age Delivery Information Delivery Date Delivery Type Labor Anesthesia Weeks Gestation Incision Type Labor Labor Length Hrs Delivered By Post Complications Tubal Sterilization Discharge Date Comments 5 38 ghtn and Oligohydr amnios Discharge Information Feeding Method Contraceptive Method Maternal HG B and HCT Levels Ob Episode Information Episode Created Date Number of Fetuses Patient Bloodtype Patient rh Status Prepregnancy Weight lbs Domestic Partner Domestic Partner Phone Father Name Boilers Inspector Status 10/08/19 21 1 CLOSED Fetus Data First Name Last Name Admitted to NICU Weight (g) Sex Living Outcome Pediatric Complications Fetus ID Race Codes Race Delivery Type 3005.04 7 M Full Term 9104 Vaginal Delivery Lainey Calculation Initial Lainey Date Initial Exam Date Initial Exam Provider Initial Ultrasound Date Last Menstrual Period Date Ultra Sound Weeks Gestation 0 Eighteen To Twenty Week Lainey Update Ultra Sound Date Fundal Height At Umbil Quickening Date Ultra Sound Latest Weeks Gestation Final Lainey Confirmed By Final Lainey Confirmed Date Final Lainey Date Ultra Sound Latest Days Gestation 0 0 Menstrual History Last Menstrual Date Menses Monthly On Bcp Conception Prior Menses Frequency Hcg Plus Date Menarche Onset Age Delivery Information Delivery Date Delivery Type Labor Anesthesia Weeks Gestation Incision Type Labor Labor Length Hrs Delivered By Post Complications Tubal Sterilization Discharge Date Comments 9 38 Discharge Information Feeding Method Contraceptive Method Maternal HG B and HCT Levels Ob Episode Information Episode Created Date Number of Fetuses Patient Bloodtype Patient rh Status Prepregnancy Weight lbs Domestic Partner Domestic Partner Phone Father Name Boilers Inspector Status 08/08/19 24 1 CLOSED Fetus Data First Name Last Name Admitted to NICU Weight (g) Sex Living Outcome Pediatric Complications Fetus ID Race Codes Race Delivery Type , [place] o[place] [id number] Lainey Calculation Initial Lainey Date Initial Exam Date Initial Exam Provider Initial Ultrasound Date Last Menstrual Period Date Ultra Sound Weeks Gestation 0 Eighteen To Twenty Week Lainey Update Ultra Sound Date Fundal Height At Umbil Quickening Date Ultra Sound Latest Weeks Gestation Final Lainey Confirmed By Final Lainey Confirmed Date Final Lainey Date Ultra Sound Latest Days Gestation 0 0 Menstrual History Last Menstrual Date Menses Monthly On Bcp Conception Prior Menses Frequency Hcg Plus Date Menarche Onset Age Delivery Information Delivery Date Delivery Type Labor Anesthesia Weeks Gestation Incision Type Labor Labor Length Hrs Delivered By Post Complications Tubal Sterilization Discharge Date Comments 3 Discharge Information Feeding Method Contraceptive Method Maternal HG B and HCT Levels Ob Episode Information Episode Created Date Number of Fetuses Patient Bloodtype Patient rh Status Prepregnancy Weight lbs Domestic Partner Domestic Partner Phone Father Name Boilers Inspector Status 08/29/19 24 1 O Positive 115 [address] [place] CLOSED Fetus Data First Name Last Name Admitted to NICU Weight (g) Sex Living Outcome Pediatric Complications Fetus ID Race Codes Race Delivery Type 3118.44 5 M true Full Term [id number] Vaginal Delivery Problems Problem Notes 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 No additional f/u with [facility] and peds nephrology. F/U with general peds. Problem Name Start Date End Date Resolution Snomed Code Not e Past history of gestational hypertension 226189213 first with oligo Past history of pre-eclampsia [id number] last pregna ncy at 39 weeks Placenta previa marginalis [id number] resolved Anemia 01/07/2024 MEDICATION [id number] 1 tab sl owfe daily Lainey Calculation Initial Lainey Date Initial Exam Date Initial Exam Provider Initial Ultrasound Date Last Menstrual Period Date Ultra Sound Weeks Gestation 03/07/2024 08/08/2023 08/08/2023 06/01/2023 9 Eighteen To Twenty Week Lainey Update Ultra Sound Date Fundal Height At Umbil Quickening Date Ultra Sound Latest Weeks Gestation Final Lainey Confirmed By Final Lainey Confirmed Date Final Lainey Date Ultra Sound Latest Days Gestation 08/29/19 24 12 [email or web address] 08/29/2023 03/12/20 24 0 Pre- Flowsheet Flowsheet Date 08/29/2023 Alonzo Score Blood Edema Fundus Height Fundus Units Glucose Ketones Leukocytes Nitrite Labor Signs Protein Cervic Dilation Cervic Effacement Cervic Station neg none none trace Type Weight in lbs Pre/Post Dialysis Refused Weight 115.916962673541 BP Diastolic BP Location Tested BP Systolic BP Type 76 116 Fetus Heart Rate Present Fetus Movement A Yes Comments anxiety and depression has r esolved, did not start taking prozac, will continue to monitor mood. hx 3 uncomplicated vaginal deliveries, reviewed precautions and education f/u 4 weeks, reviewed us wnl Flowsheet Date 09/11/2023 Alonzo Score Blood Edema Fundus Height Fundus Units Glucose Ketones Leukocytes Nitrite Labor Signs Protein Cervic Dilation Cervic Effacement Cervic Station Type Weight in lbs Pre/Post Dialysis Refused BP Diastolic BP Location Tested BP Systolic BP Type Fetus Heart Rate Present Fetus Movement Comments Flowsheet Date 09/26/2023 Alonzo Score Blood Edema Fundus Height Fundus Units Glucose Ketones Leukocytes Nitrite Labor Signs Protein Cervic Dilation Cervic Effacement Cervic Station neg none none trace Type Weight in lbs Pre/Post Dialysis Refused Weight 116.09510513621 BP Diastolic BP Location Tested BP Systolic BP Type 78 122 Fetus Heart Rate Present Fetus Movement A Yes Comments patient is having nausea and vomiting. zofran is working, headache x 1 week, tylenol not super helpful, fioricet to pharmacy call if does not resolve, precautions and education f/u 4 weeks anatomy Flowsheet Date 10/24/2023 Alonzo Score Blood Edema Fundus Height Fundus Units Glucose Ketones Leukocytes Nitrite Labor Signs Protein Cervic Dilation Cervic Effacement Cervic Station Type Weight in lbs Pre/Post Dialysis Refused BP Diastolic BP Location Tested BP Systolic BP Type Fetus Heart Rate Present Fetus Movement Comments Flowsheet Date 10/24/2023 Alonzo Score Blood Edema Fundus Height Fundus Units Glucose Ketones Leukocytes Nitrite Labor Signs Protein Cervic Dilation Cervic Effacement Cervic Station neg none none trace Type Weight in lbs Pre/Post Dialysis Refused Weight 119.309294074863 BP Diastolic BP Location Tested BP Systolic BP Type 79 126 Fetus Heart Rate Present Fetus Movement A Yes Comments Patient is having some side and back pain, nausea and vomiting. anatomy complete , unilateral program dir, nipt low risk, marginal previa, discussed pelvic rest and lifting restrictions, abd muscular pain will measure for maternity band next visit try flexeril education and precautions reviewed Flowsheet Date 11/21/2023 Alonzo Score Blood Edema Fundus Height Fundus Units Glucose Ketones Leukocytes Nitrite Labor Signs Protein Cervic Dilation Cervic Effacement Cervic Station Type Weight in lbs Pre/Post Dialysis Refused BP Diastolic BP Location Tested BP Systolic BP Type Fetus Heart Rate Present Fetus Movement Comments Flowsheet Date 11/21/2023 Alonzo Score Blood Edema Fundus Height Fundus Units Glucose Ketones Leukocytes Nitrite Labor Signs Protein Cervic Dilation Cervic Effacement Cervic Station none Type Weight in lbs Pre/Post Dialysis Refused Weight 121.633305245618 BP Diastolic BP Location Tested BP Systolic BP Type 82 127 Fetus Heart Rate Present Fetus Movement A Yes Comments Patient is having some pain, nausea and vomiting. efw 42 % breech, 18mm placenta from os, cont pelvic rest rpt 4 weeks, program dir resolved, anatomy complete, education and precautions f/u us in 4 weeks Flowsheet Date 12/19/2023 Alonzo Score Blood Edema Fundus Height Fundus Units Glucose Ketones Leukocytes Nitrite Labor Signs Protein Cervic Dilation Cervic Effacement Cervic Station Type Weight in lbs Pre/Post Dialysis Refused BP Diastolic BP Location Tested BP Systolic BP Type Fetus Heart Rate Present Fetus Movement Comments Flowsheet Date 12/19/2023 Alonzo Score Blood Edema Fundus Height Fundus Units Glucose Ketones Leukocytes Nitrite Labor Signs Protein Cervic Dilation Cervic Effacement Cervic Station none Type Weight in lbs Pre/Post Dialysis Refused Weight 130.377678058272 BP Diastolic BP Location Tested BP Systolic BP Type 70 118 Fetus Heart Rate Present Fetus Movement A Yes Comments Patient states that having s ome BH contraction, nausea and vomiting. LLP resolved, doing well f/u growth 4 weeks, efw 37%, precautions and education Flowsheet Date 01/02/2024 Alonzo Score Blood Edema Fundus Height Fundus Units Glucose Ketones Leukocytes Nitrite Labor Signs Protein Cervic Dilation Cervic Effacement Cervic Station none 28 Type Weight in lbs Pre/Post Dialysis Refused Weight 133.690630047841 BP Diastolic BP Location Tested BP Systolic BP Type 70 111 Fetus Heart Rate Present A 158 Present Fetus Movement A Yes Comments Patient states that is havin g headaches, nausea and vomiting. ok for exedrin tension, precautions and education f/u 2 weeks Flowsheet Date 01/16/2024 Alonzo Score Blood Edema Fundus Height Fundus Units Glucose Ketones Leukocytes Nitrite Labor Signs Protein Cervic Dilation Cervic Effacement Cervic Station Type Weight in lbs Pre/Post Dialysis Refused BP Diastolic BP Location Tested BP Systolic BP Type Fetus Heart Rate Present Fetus Movement Comments Flowsheet Date 01/16/2024 Alonzo Score Blood Edema Fundus Height Fundus Units Glucose Ketones Leukocytes Nitrite Labor Signs Protein Cervic Dilation Cervic Effacement Cervic Station none Type Weight in lbs Pre/Post Dialysis Refused Weight 127.950208296674 BP Diastolic BP Location Tested BP Systolic BP Type 67 111 Fetus Heart Rate Present Fetus Movement A Yes Comments Patient states that is havin g cramping, BH contractions, nausea and vomiting. us reviewed, kidneys stable efw 25%, doing well f/u 4 week us, 2 week visit, time to call for preadmit appt Flowsheet Date 01/30/2024 Alonzo Score Blood Edema Fundus Height Fundus Units Glucose Ketones Leukocytes Nitrite Labor Signs Protein Cervic Dilation Cervic Effacement Cervic Station none Type Weight in lbs Pre/Post Dialysis Refused 132.434670701795 BP Diastolic BP Location Tested BP Systolic BP Type 70 110 Fetus Heart Rate Present Fetus Movement A Yes Comments Patient states that is havin g some pain, contractions, nausea and vomiting. reviewed precautions, mfm said kidneys ok! gbs next visit in 2 weeks, +FM, education and precautions Flowsheet Date 02/13/2024 Alonzo Score Blood Edema Fundus Height Fundus Units Glucose Ketones Leukocytes Nitrite Labor Signs Protein Cervic Dilation Cervic Effacement Cervic Station none 36 cm Type Weight in lbs Pre/Post Dialysis Refused Weight 133.792031954512 BP Diastolic BP Location Tested BP Systolic BP Type 68 107 Fetus Heart Rate Present A 150 Fetus Movement A Yes Comments Patient is having contractio ns, nausea and vomiting. sees mfm sunday for kidney follow up, +FM cervix FT/soft, precautions and education Flowsheet Date 02/20/2024 Alozno Score Blood Edema Fundus Height Fundus Units Glucose Ketones Leukocytes Nitrite Labor Signs Protein Cervic Dilation Cervic Effacement Cervic Station none 34 cm Type Weight in lbs Pre/Post Dialysis Refused Weight 132.483751324852 BP Diastolic BP Location Tested BP Systolic BP Type 72 118 Fetus Heart Rate Present A 154 Fetus Movement A Yes Comments Patient states that is havin g some nausea and vomiting. +FM, deliver by LAINEY if does not go into labor on her own, educationa nd precautions Flowsheet Date 02/27/2024 Alonzo Score Blood Edema Fundus Height Fundus Units Glucose Ketones Leukocytes Nitrite Labor Signs Protein Cervic Dilation Cervic Effacement Cervic Station none 36 cm Type Weight in lbs Pre/Post Dialysis Refused Weight 134.44722209178 BP Diastolic BP Location Tested BP Systolic BP Type 74 122 Fetus Heart Rate Present A 132 Present Fetus Movement A Yes Comments Patient is having some back pain, contractions, nausea and vomiting. precautions and education, declines IOL f/u one week Flowsheet Date 03/05/2024 Alonzo Score Blood Edema Fundus Height Fundus Units Glucose Ketones Leukocytes Nitrite Labor Signs Protein Cervic Dilation Cervic Effacement Cervic Station none 37 cm Type Weight in lbs Pre/Post Dialysis Refused Weight 138.075698633259 BP Diastolic BP Location Tested BP Systolic BP Type 73 115 Fetus Heart Rate Present A 142 Present Fetus Movement A Yes Comments Patient is having some pain, contractions, discharge, nausea and vomiting. if undelivered plan membrane sweep next week, +FM, education and precautions Flowsheet Date 04/23/2024 Alonzo Score Blood Edema Fundus Height Fundus Units Glucose Ketones Leukocytes Nitrite Labor Signs Protein Cervic Dilation Cervic Effacement Cervic Station Type Weight in lbs Pre/Post Dialysis Refused Weight 124.226102692689 BP Diastolic BP Location Tested BP Systolic BP Type 85 130 Fetus Heart Rate Present Fetus Movement Comments Menstrual History Last Menstrual Date Menses Monthly On Bcp Conception Prior Menses Frequency Hcg Plus Date Menarche Onset Age 1206/01/2023 Genetic Screening And Infection History Question Response Note Mental Retardation/Autism false Patient's Age Will Be 35 Yea rs Or Older At Estimated Date of Delivery false Thalassemia ([place], Citizen Of [place], Mediterranean, Or Background): MCV < 80 false Neural Tube Defect (Meningom yelocele, Spina Bifida, Or Anencephaly) false Congenital Heart Defect false Down Syndrome false Mendez-Sachs (eg, Sabianist, Cajun, Ukrainian-Emirati) f alse Rupali Disease false Sickle Cell Disease Or Trait () false Hemophilia Or Other Blood Disorders false Muscular Dystrophy false Cystic Fibrosis false Ca's Chorea false Intellectual Disability/Autism false If Yes, Was Person Tested For Fragile X? false Other Inherited Genetic Or Chromosomal Disorder false Maternal Metabolic Disorder (eg, Type 1 Diabetes , PKU) false Patient Or Baby's Father Had A Child With Defects Not Listed Above false Recurrent Loss, Or A Stillbirth false Medications (including Suppl ements, Vitamins, Herbs, OTC Drugs), Illicit/Recreational Drugs, Alcohol true pnv, zofran If Yes, Agent(s) And Strength/Dosage false Any Other Genetic History false Live With Someone With TB Or Exposed To TB false Patient Or Partner Has History Of Genital Herpes false Rash Or Viral Illness Since Last Menstrual Perio d false History Of STD, Gonorrhea, Chlamydia, HPV, Syphi lis false Other Infection History false History of HIV false History of Hepatitis false Prior GBS-infected child false Hemoglobinopathy Or Carrier false Other Structural Defect false Recent Travel History Outside of Country false Delivery Information Delivery Date Delivery Type Labor Anesthesia Weeks Gestation Incision Type Labor Labor Length Hrs Delivered By Post Complications Tubal Sterilization Discharge Date Comments [place] false Barbara Ramirez CNM Anemia,Pa st history of gestation al hypertens ion,Past history of pre-eclam psia,Plac enta previa marginali s Discharge Information Feeding Method Contraceptive Method Maternal HG B and HCT Levels
--- OUTSIDE RECORDS SUMMARY | 2024-08-27 21:53 | XMS_ITS | Continuity of Care Document ---
Author Organization [facility] [place] Address [address] [place] [place] [address] [address] Assessment No assessment recorded. Plan of Treatment [...] US, obstetr ic, limited 2024 025 [email or web address] [place], [address], [place], [address], 08/26/2024 17:33:08 Medication Orders None recorde d. Patient TargetsNo targets recorded. Patient InstructionsNo instructions recorded. Reason for Referral None Reported. Results Created Date Observation Date Name Description Value Unit Range Abnormal Flag Note LastModifiedBy Organization Detail LastModifiedTime 08/11/1908/11/2024 US, obste tric, trans vagin al No observ ation record ed. [email or web address] [place] [address], [place], [address], 08/11/2024 18:28:41 08/11/19 25 08/11/2024 US, obste tric, follo w-up No observ ation record ed. [email or web address] [address], [place], [address], 08/13/2024 15:20:24 08/14/19 25 08/14/2024 US, obste tric, trans vagin al No observ ation record ed. [address], [place], [address], 08/14/2024 18:15:03 08/14/19 25 08/14/2024 US, obste tric, trans vagin al No observ ation record ed. [email or web address] [address], [place], [address], 08/14/2024 13:14:47 08/19/19 25 08/19/2024 US, obste tric, trans vagin al No observ ation record ed. [address], [place], [address], 08/19/2024 13:46:45 08/19/19 25 08/19/2024 US, obste tric, trans vagin al No observ ation record ed. [email or web address] [address], [place], [address], 08/20/2024 00:23:12 08/22/19 25 08/22/2024 US, obste tric, 1st trime ster No observ ation record ed. [email or web address] [address], [place], [address], 08/27/2024 09:07:15 08/22/19 25 08/22/2024 US, obste tric, limit ed No observ ation record ed. [facility] [address], [place], [address], 08/22/2024 18:39:00 08/27/19 25 08/26/2024 US, obste tric, limit ed No observ ation record ed. [facility] [address], [place], [address], 08/26/2024 16:23:27 08/27/19 25 08/26/2024 US, obste tric, limit ed No observ ation record ed. [email or web address] [address], [place], [address], 08/27/2024 09:07:01 Result Notes None recorded. Problems Name Problem SNOMED Code Status Onset Date Resolution Date Notes Provider Name and Address Organization Details Recorded Time Pregnanc y 56881360 Completed 202005/13/[address] [facility] 4 13:38:54 Past pregnanc y history of pre-ecla mpsia 1215845279 88768 Active last pregnanc y at 39 weeks Iwona Hopkins [facility], [facility] 4 15:36:44 Past pregnanc y history of gestatio nal hyperten georgina 762866403 Completed first preg only, ASA to start Kristan john [facility], [facility] 1 14:32:25 Premenst rual dysphori c disorder 408058 Active 2022 Miranda Sanchez MD [address], [place], [address], [place] [facility] 3 13:43:15 Mixed anxiety and depressi ve disorder 121418203 Active 2023 Iwona Hopkins [facility], [facility] 4 15:38:35 Pregnanc y 82618308 Completed 202303/10/[address] [facility] 4 13:38:54 Past pregnanc y history of gestatio nal hyperten georgina 571409719 Completed first pregnanc y with oligo Iwona Hopkins [facility] 4 15:36:44 Past pregnanc y history of pre-ecla mpsia 2911322311 54975 Completed last pregnanc y at 39 weeks Iwona Kellie etienne, [facility] 4 15:36:44 Placenta previa marginal is 37983971 Completed resolved Iwona Kellie etienne [facility] 4 15:36:44 Anemia 669867579 Completed 2023 1 tab slowfe daily Iwona Hopkins [facility], [facility] 4 15:36:44 Hemorrha gic complica tion of pregnanc y 828445496 Completed 201710/07/2020 Other hemorrha ge in early pregnanc y;Record ed Elsewher e: No Locat ion: [facility] S ource: EHR Investigator angela: Pablo Mahoney ce ID: 0001 Melo lable Time: 03:00:[address] [facility] 1 11:10:15 Primigra sheng 523542854 Completed 201410/07/2020 Supervis ion of normal first pregnanc y;Record ed Elsewher e: No Locat ion: [facility] S ource: EHR Investigator angela: Pablo Mahoney ce ID: 0001 Melo lable Time: 04:00:00 PM Bere [place] [facility] 1 11:10:30 Mental disorder during pregnanc y - baby delivere d 851464251 Completed 201410/07/2020 Postpart um mental disorder s of mother;R ecorded Elsewher e: No Locat ion: [facility] S ource: EHR Investigator angela: N Denzel ce ID: 0001 Melo lable Time: 11:00:00 AM [facility] 11:10:20 Gestatio n period, 31 weeks 99794913 Completed 201810/07/2020 31 weeks gestatio n of pregnanc y;Record ed Elsewher e: No Locat ion: Mona mejia [facility] S ource: EHR Investigator angela: N Denzel ce ID: 0001 Melo lable Time: 11:30:00 AM Bere Kern jaimie, [facility] 11:10:09 Transien t hyperten georgina of pregnanc y - delivere d 762335853 Completed 201410/07/2020 Gestatio nal hyperten georgina;Rec orded Elsewher e: No Locat ion: [facility] S ource: EHR Investigator angela: N Brainti ce ID: 0001 Melo lable Time: 09:30:00 AM Bere Erlin etienne, [facility] 11:10:40 Normal pregnanc y in multigra sheng [id number] 22669 Completed 201810/07/2020 Encounte r for suprvsn of normal pregnanc y, third trimeste r;Record ed Elsewher e: No Locat ion: [facility] S ource: EHR Investigator angela: N Denzel ce ID: 0001 Melo lable Time: 02:15:00 PM Bere Erlin etienne, [facility] 11:10:[address] Concept Completed 201710/07/2020 Encntr for [facility] attendant exam (general ) (routine ) w/o abn findings ;Recorde d Elsewher e: No Locat ion: [facility] S ource: EHR Investigator angela: N Denzel ce ID: 0001 Melo lable Time: 03:00:00 PM Bere Erlin etienne [facility] 11:10:36 Female genital organ symptoms 009559947 Completed 201310/07/2020 Unspecif ied symptom associat ed with female genital organs;R ecorded Elsewher e: No Locat ion: Mona mejia [facility] S ource: EHR Investigator angela: N Denzel ce ID: 0001 Melo lable Time: 02:15:00 PM Bere etienne, [facility] 11:10:06 Speciali mike medical examinat ion Completed 201310/07/2020 Gynecolo gical Examinat ion;Jared rded Elsewher e: No Locat ion: [facility] S ource: EHR Investigator angela: N Brainti ce ID: 0001 Melo lable Time: 02:15:00 PM Bere etienne, [facility] 1 11:10:37 Uterine size for dates discrepa ncy 282634908 Completed 201310/07/2020 UTERINE SIZE NEHAL-ANTE PAR;Jared rded Elsewher e: No Locat ion: [facility] S ource: EHR Investigator angela: N Braineula ce ID: 0001 Melo lable Time: 08:30:[address] [facility] 11:10:44 Breast lump 68934897 Completed 201710/07/2020 Mass in breast;R ecorded Elsewher e: No [facility]at ion[facility] Mahoney ce ID: 0001 Melo lable Time: 03:00:00 PM Bere etienne [facility] 11:10:00 Ultrason ography Completed 201310/07/2020 Antenata l screenin g for malforma tion using ultrason ics;Jared rded Elsewher e: No Locat ion: [facility] S ource: EHR Investigator angela: N Brainti ce ID: 0001 Melo lable Time: 08:15:00 AM Bere etienne, [facility] 11:10:41 Antenata l screenin g Completed 201310/07/2020 Antenata l screenin g for malforma tion using ultrason ics;Jared rded Elsewher e: No Locat ion: [facility] S ource: EHR Investigator angela: N Brainti ce ID: 0001 Melo lable Time: 08:15:00 AM Bere etienne, [facility] 11:09:56 Congenit al malforma tion 816149244 Completed 201310/07/2020 Antenata l screenin g for malforma tion using ultrason ics;Jared rded Elsewher e: No Locat ion: [facility] S ource: EHR Investigator angela: N Practi ce ID: 0001 Melo lable Time: 08:15:00 AM Bere etienne, [facility] 11:10:02 Rubella screenin g status 262129640 Completed 201810/07/2020 Encounte r for antenata l screenin g, unspecif ied;Jared rded Elsewher e: No Locat ion: [facility] S ource: EHR Investigator angela: N Brainti ce ID: 0001 Melo lable Time: 03:30:00 PM Bere etienne, [facility] 11:10:31 Pregnanc y test positive 253582002 Completed 201310/07/2020 Pregnanc y examinat ion or test, positive result;R ecorded Elsewher e: No Locat ion: [facility] S ource: EHR Investigator angela: N Practi ce ID: 0001 Melo lable Time: 02:15:00 PM Bere etienne [facility] 11:10:29 Antenata l screenin g for malforma tion Completed 201810/07/2020 Encounte r for antenata l screenin g for malforma tions;Re corded Elsewher e: No Locat ion: [facility] S ource: EHR Investigator angela: N Practi ce ID: 0001 Melo lable Time: 03:00:00 PM Bere etienne, [facility] 11:09:58 Nausea and vomiting [id number] Completed 201310/07/2020 Nausea and vomiting ;Recorde d Elsewher e: No Locat ion: Mona mejia [facility] S ource: EHR Investigator angela: N Brainti ce ID: 0001 Melo lable Time: 02:15:00 PM Bere etienne, [facility] 11:10:21 Uterine size for dates discrepa ncy Completed 201810/07/2020 Uterine size-hill e discrepa ncy, third trimeste r;Record ed Elsewher e: No Locat ion: Mona jackie [facility] S ource: EHR Investigator angela: N Brainti ce ID: 0001 Melo lable Time: 11:30:00 AM Bere etienne, [facility] 11:10:43 Gestatio n period, 16 weeks [id number] Completed 201810/07/2020 16 weeks gestatio n of pregnanc y;Record ed Elsewher e: No Locat ion: Mona mejia [facility] S ource: EHR Investigator angela: N Brainti ce ID: 0001 Melo lable Time: 05:00:00 PM Bere etienne, [facility] 11:10:08 Postpart um care Completed 201410/07/2020 Routine postpart um follow-u p;Record ed Elsewher e: No Locat ion: Mona jackie [facility] S ource: EHR Investigator angela: N Practi ce ID: 0001 Melo lable Time: 01:45:00 PM Bere etienne, [facility] 11:10:26 Poor growth affectin g manageme nt 393009278 Completed 201410/07/2020 Poor growth, affectin g manageme nt of mother, antepart um conditio n or complica tion;Rec orded Elsewher e: No Locat ion: [facility] S ource: EHR Investigator angela: N Practi ce ID: 0001 Melo lable Time: 05:00:00 PM Bere etienne, [facility] 11:10:24 Amenorrh ea 79352623 Completed 201310/07/2020 Absence of menstrua tion;Rec orded Elsewher e: No Locat ion: [facility] S ource: EHR Investigator angela: N Practi ce ID: 0001 Melo lable Time: 02:15:00 PM Bere etienne, [facility] 11:09:54 Gestatio n period, 9 weeks 973236 Completed 201710/07/2020 9 weeks gestatio n of pregnanc y;Record ed Elsewher e: No [facility]at ion: [facility] N Practi ce ID: 0001 Melo lable Time: 03:00:00 PM Bere Rizzobk etienne, [facility] 11:10:14 Screenin g for malignan t neoplasm of cervix Completed 201310/07/2020 Pap Smear;Pr actice ID: 0001 Bere Erlin etienne, [facility] 11:10:33 Delivery normal [id number] Completed 201410/07/2020 Normal delivery ;Practic e ID: 0001 Bere etienne, [facility] 11:10:04 Single live 112058933 Completed 201410/07/2020 Mother with single liveborn ;Practic e ID: 0001 Bere etienne, [facility] 11:10:34 Pregnanc y detectio n examinat ion Completed 201710/07/2020 Encounte r for pregnanc y test, result positive ;Practic e ID: 0001 Bere etienne, [facility] 11:10:27 Gestatio n period, 35 weeks [id number] Completed 201810/07/2020 35 weeks gestatio n of pregnanc y;Record ed Elsewher e: No Locat ion: [facility] S ource: EHR Investigator angela: N Practi ce ID: 0001 Melo lable Time: 03:00:00 PM Bere etienne, [facility] 1 11:10:11 Term pregnanc y delivere d 07174731 Completed 201810/07/2020 Encounte r for full-ter m uncompli cated delivery ;Practic e ID: 0001 Bere etienne, [facility] 11:10:39 Gestatio n period, 38 weeks 08840210 Completed 201810/07/2020 38 weeks gestatio n of pregnanc y;Practi ce ID: 0001 Bere etienne, [facility] 11:10:12 Problem Notes None recorded. Procedures Surgical History Date Name Laterality Status Provider Name and Address Organization Details Recorded Time 08/08/2023 Date of Last Pap Smear completed Iwona Hopkins [facility] 08/08/2023 15:39:16 Imaging Results Imaging Date Name Status LastModified by Organiz ation Details LastModified Time 08/26/2024 US, obstetric, limited completed [facility] [address], [place], [address], 08/26/2024 16:23:27 Procedure Notes None recorded. Medical Equipment None [...] Prescrib ed Elsewher e: No Locat ion: [facility] odify By: bill solorzano DateTime : 01/22/20 14 02:15:00 PM Not Available Not Available Not Available Zofran 8 mg tablet take 1 tablet by oral route every 8 hours 09/04 completed Prescrib ed Elsewher e: No Locat ion: [facility] odify By: fahad bush DateTime : 02/27/20 14 09:00:00 AM Not Available Not Available Not Available metoclopr amide 5 mg tablet Take 1 tablet 4 times a day by oral route as directed . active Not Available Not Available No t Available nifedipin e 10 mg capsule take 2 Capsule by oral route every 6 hours 10/07 completed Prescrib ed Elsewher e: Yes Loca tion: [facility] odify By: sheree Jain er DateTime : 09/12/19 15 11:00:00 AM Not Available Not Available Not Available Compazine 5 mg tablet take 1 tablet by oral route every 4 hours as needed for nausea and vomiting 10/07 completed Prescrib ed Elsewher e: No Locat ion: [facility] odify By: laron aponte DateTime : 05/03/20 [...] Prescrib ed Elsewher e: No Locat ion: [facility] odify By: fahad bush DateTime : 06/29/19 15 01:04:47 PM Not Available Not Available Not Available Zoloft 25 mg tablet take 1 tablet by oral route every day 10/02 completed Prescrib ed Elsewher e: No Locat ion: [facility] odify By: sheree allison DateTime : 09/12/19 [...] Prescrib ed Elsewher e: Yes Loca tion: [facility]ify By: [email or web address] Encounte r DateTime : 02/27/20 14 09:00:00 AM Not Available Not Available Not Available 28 mg-800 mcg tablet 10/07 completed Prescrib ed Elsewher e: Yes Loca tion: [facility] odify By: [email or web address] Encount er DateTime : 08/08/19 19 04:00:00 PM Not Available Not Available Not Available Zurzuvae 25 mg capsule 2023 active Not Available Not Available Not Avai lable Vitals None Recorded Social History Question Answer Notes LastModified by Organizat ion Details LastModified Time Tobacco Smoking Status Former Sm[facility] 08/08/2023 15:42:24 What Is Your Level Of Alcohol Consumption? None [email or web address] Information not available 08/08/2023 If You Are , What Was Your Level Of Alcohol Consumption Prior To ? Occasional [email or web address] Information not available 03/30/2021 Are You Blind Or Do You Have Difficulty Seeing? No [email or web address] Information not available 03/30/2021 What Is Your Level Of Caffeine Consumption? Occasional [email or web address] Information not available 03/30/2021 In The 14 Days Before Symptom Onset, Have You Had Close Contact With A Laboratory-confir med COVID-19 While That Case Was Ill? No Information not available 03/30/2021 In The 14 Days Before Symptom Onset, Have You Had Close Contact With A Person Who Is Under Investigation For COVID-19 While That Person Was Ill? No [email or web address] Information not available 03/30/2021 Have You Been To An Area Known To Be High Risk For COVID-19? No [email or web address] Information not available 03/30/2021 Are You Deaf Or Do You Have Serious Difficulty Hearing? No [email or web address] Information not available 03/30/2021 What Type Of Diet Are You Following? REGULAR [email or web address] Information not available 03/30/2021 Have You Ever Been Counseled For Unhealthy Alcohol Use? No [email or web address] Information not available 03/30/2021 Do You Use Your Seat Belt Or Car Seat Routinely? Yes [email or web address] Information not available 03/30/2021 Do You Have Smoke And Carbon Monoxide Detectors In Your Home? Yes [email or web address] Information not available 03/30/2021 Do You Feel Stressed (tense, Restless, Nervous, Or Anxious, Or Unable To Sleep At Night)? [id number] [email or web address] Information not available 03/30/2021 Do You Use Any Illicit Or Recreational Drugs? No [email or web address] Information not available 03/30/2021 Do You Use Sunscreen Routinely? Yes [email or web address] Information not available 03/30/2021 Has Tobacco Cessation Counseling Been Provided? No [email or web address] Information not available 03/30/2021 Do You Or Have You Ever Used Any Other Forms Of Tobacco Or Nicotine? No [email or web address] Information not available 03/30/2021 Sex: Unknown Functional Status Question Answer Note LastModified by Organizat ion Details LastModified Time Do you have difficulty walking or climbing stairs? No [email or web address] Information not available 08/08/2023 Are you able to walk? YESWOREST Information not available 03/30/2021 Are you able to care for yourself? Yes [email or web address] Information not available 08/08/2023 Do you have difficulty dressing or bathing? No [email or web address] Information not available 08/08/2023 What is your exercise level? Occasional [email or web address] Information not available 03/30/2021 Mental Status None recorded. Family History Relationship Description Onset Age of this Age Resolved Age Notes LastModified by Organization Details LastModified Time Maternal Aunt Malignant tumor of ovary [email or web address] Not available 2020 11:29:12 Maternal Aunt Malignant tumor of cervix [email or web address] Not available 2020 11:29:24 Maternal Aunt Seizure disorder [email or web address] Not available 2020 11:29:35 Maternal Grandmother Malignant tumor of lung [email or web address] Not available 2020 11:29:52 Maternal Grandmother Anemia [email or web address] Not available 10/07 11:31:23 Maternal Grandmother Disorder of thyroid gland [email or web address] Not available 2020 11:31:32 Maternal Grandmother Diabetes mellitus [email or web address] Not available 2020 11:31:49 Maternal Grandmother Malignant tumor of breast Not available 2020 11:32:00 Maternal Grandmother Leukemia [email or web address] Not available 15:40:47 Mother Anemia [email or web address] Not available 0 10/07/2020 11:30:20 Mother Cyst of ovary [email or web address] Not available 2020 11:31:00 Mother Malignant tumor of cervix [email or web address] Not available 2020 11:31:12 Son Primate erythroparvo virus 1 infection [email or web address] Not available 12/18 15:57:29 Medical History Condition Response Allergies (Food, seasonal, environmental ) N Other N Breast Cancer N Drug/Latex Allergies/Reactions N Blood Transfusion N Lung Disease N Dermatologic Disorders N Defects or Inherited Disease N Breast Problem N Gestational Diabetes N Hematologic disorders N Anesthesia Complications N History of STI N Deep Vein Thrombosis N Polycystic ovary syndrome N Anxiety Disorder Y Autoimmune disease N Arthritis N Infertility N Polyps N Acid Reflux (GERD) N History of abnormal pap N Cancer N Stroke N Varicosities N Neurologic/Epilepsy N Endometriosis N High Cholesterol N Headaches N Fibromyalgia N Kidney Disease N Heart Problems N Kidney or Bladder Problems N Thyroid Problems N GI Problems N Eating Disorder [...] SNOMED-CT Code Diagnosis ICD10 Code Diagnosis Note [id number] [facility] [address],[place] [address] 08/11/2024 14:58:52 08/11/2024 15:34:34 Threatened miscarriage [id number] O20.0 Z3A.01 [id number] [facility] [address],[place] [address] 08/14/2024 12:25:57 08/14/2024 13:00:04 Threatened miscarriage 42910773 O20.0 O36.8910 Z3A.01 [id number] [facility] [address],[place] [address] 08/19/2024 12:25:10 08/19/2024 13:04:15 Threatened miscarriage 33439955 O20.0 O36.8910 Z3A.08 [id number] [facility] [address],[place] [address] 08/22/2024 16:41:06 08/25/2024 14:56:54 Spotting per vagina in 022212582 O26.859 O20.0 Z3A.08 [id number] [facility] [address],[place] [address] 08/26/2024 15:08:16 08/26/2024 15:36:12 Threatened miscarriage 09530774 O20.0 O36.8910 Z3A.09 Health Concerns Section Related Observation LastModified by Organization Detai ls LastModified Time None Recorded Concern Status LastModified by Organization Details LastModified Time None Recorded Payers Encounter Date Sequence Insurance Name Policy Number Policy Arredondo Covered Member ID Arredondo Member ID Guarantor Name 08/26/2024 1 [employer] (MEDICAID HMO) [id number] 0003 Zully Wiley [id number] Zully Wiley OBGyn Episode No OBEpisode recorded.
--- NOTE | 2024-08-27 22:08 | ED_ITS ---
HPI - General Chief complaint: Abdominal Pain Stated complaint: 9 weeks preg, bleeding with cramping Time Seen by Provider: 08/27/24 22:01 Source: patient Mode of arrival: ambulatory Limitations: no limitations History of Present Illness HPI Narrative: This is a 28 year old female that presents to the ER for vaginal bleeding tonight. Reports she has been having trouble with bleeding this due to a subchorionic hematoma. She is currently about 9 weeks . Her OB is Barbara Ramirez. Reports tonight her bleeding significantly worsened. She is lightheaded. Reports worsening pelvic cramping. Related Data Home Medications ?Medication ?Instructions ?Recorded ?Confirmed ?Last Taken ?Type prenat.vits,dontrell,qnv-aecw-lecoq 1 tablet PO DAILY 02/11/24 03/10/24 03/08/24 08:00 History ondansetron HCl 4 mg tablet 4 mg PO Q6H PRN Nausea 03/10/24 03/10/24 03/09/24 16:00 History Allergies Allergy/AdvReac Type Severity Reaction Status Date / Time No Known Allergies Allergy Verified 08/27/24 21:51 Review of Systems 2 Review of Systems: CONSTITUTIONAL: Denies fever GASTROINTESTINAL: Reports pelvic cramping. Denies nausea, vomiting All systems reviewed & are unremarkable except as noted in HPI and below PMFSH Past Medical History Medical History Healthy female adult Surgical History Surgical History No pertinent past surgical history Family History Family History Other No pertinent family history Social History Social History Smoking status: Former smoker Smoking end date: 07/26/23 Substance use: never Do You Feel Safe in your Home?: Yes Lack of Transportation: No Lack of Food: Never True Current Housing: I Have Housing Concerned About Future Housing: No Difficulty Paying Gas/Electric Bills: No Difficulty Paying for Meds: No Currently Unemployed: No Education: High School Diploma/GED Difficulty w/ Childcare or Family Care: No Spiritual care concerns: No Exam 2 Narrative: GENERAL: Uncomfortable, well-nourished, and in no acute distress. HEAD: Normocephalic, atraumatic. EYES: EOMI. CHEST: Clear to auscultation. No respiratory distress. No wheezes rales or rhonchi HEART: Regular rate and rhythm. No murmur heard. Normal peripheral pulses. ABDOMEN: Soft, nondistended, normal active bowel sounds. Mild tenderness to palpation throughout the lower abdomen EXTREMITIES: Normal range of motion. No edema. SKIN: Warm, dry, no rash. NEURO: No focal deficits. Alert and oriented x3. PSYCH: Normal mood and affect PELVIC: Moderate amount of dark red vaginal bleeding with blood clots Course Course Emergency Course: patient updated on her workup. She would prefer to be discharged and follow up in the office Consultations Consultation #1: Spoke with Dr. Rebolledo about patient and workup. Patient will be given order for repeat quantitative beta hCG. She can follow up in clinic Date: 08/27/24 Vital Signs Vital signs: Vital Signs Temperature 97.3 F L 08/27/24 21:52 Pulse Rate 143 H 08/27/24 21:52 Respiratory Rate 15 08/27/24 21:52 Blood Pressure 103/74 08/27/24 21:52 Pulse Oximetry 100 08/27/24 21:52 Oxygen Delivery Room Air 08/27/24 21:52 Temperature 97.3 F L 08/27/24 21:52 Pulse Rate 117 H 08/27/24 22:47 Respiratory Rate 19 08/27/24 22:47 Blood Pressure 116/84 08/27/24 22:47 Pulse Oximetry 100 08/27/24 22:47 Oxygen Delivery Room Air 08/27/24 21:52 MDM - OB/Uterine Contractions MDM Narrative Medical decision making narrative: Patient presents the emergency department for vaginal bleeding in . Reports known subchorionic hematoma. Reporting increasing bleeding urine chronic weeks at which prompted her to be seen. Patient tachycardic upon arrival, this normalized with IV fluids. Her blood pressure has remained stable. Moderate amount of bleeding on pelvic exam. She is afebrile and nontoxic appearing. CBC with leukocytosis to 16.7. Shows normocytic anemia hemoglobin of 10.5, patient reports this is likely around her baseline. Metabolic panel mild hypokalemia, this was replaced. Patient is O positive. ultrasound shows thickened, complex, hypervascular endometrium. No intrauterine gestation visualized. patient updated on her workup. She would prefer to be discharged and follow up in the office. Spoke with Dr. Rbeolledo about patient and workup. Patient will be given order for repeat quantitative beta hCG. She can follow up in clinic. Patient was given strict return precautions Differential Diagnosis Differential diagnosis: Likely other (Miscarriage, threatened miscarriage) Lab Data Attestation: I reviewed the patient's lab results. 08/27/24 22:21 08/27/24 22:21 Labs: Lab Results 08/27/24 08/27/24 Range/Units 22:19 22:21 WBC 16.7 H (4.5-10.0) K/mm3 RBC 3.75 L (4.2-5.4) M/mm3 Hgb 10.5 L (12.0-15.0) g/dL Hct 31.7 L (37.0-47.0) % MCV 84.5 (80-100) fl MCH 28.0 (26-34) pg MCHC 33.1 (32-36) g/dl RDW 14.8 H (11.5-14.5) % Plt Count 249 (150-375) k/mm3 MPV 9.6 (7.4-10.4) fl Immature Gran % (Auto) 0.4 (0-0.5) % Neut % (Auto) 78.8 H (45.5-73.1) % Lymph % (Auto) 14.6 L (18.3-44.2) % Thurston % (Auto) 5.1 (2.6-8.5) % Eos % (Auto) 0.7 (0-4.4) % Baso % (Auto) 0.4 (0.2-1.2) % Lymph # (Auto) 2.43 (0.9-3.2) K/mm3 Thurston # (Auto) 0.9 H (0.1-0.6) K/mm3 Eos # (Auto) 0.1 (0-0.3) K/mm3 Baso # (Auto) 0.1 (0.0-0.1) K/mm3 Abs Immat Gran (auto) 0.06 H (0.00-0.031) K/mm3 Absolute Neuts (auto) 13.2 H (1.3-6.7) K/mm3 Absolute Nucleated RBC 0.000 (0.0-0.012) K/mm3 Nucleated RBC % 0.0 (0.0-0.2) % PT 15.4 H (11.1-14.7) Seconds INR 1.2 APTT 26.6 (22.3-36.8) Seconds Sodium 134 L (137-145) mmol/L Potassium 2.9 L (3.4-5.0) mmol/L Chloride 100 (98-107) mmol/L Carbon Dioxide 22 (22-30) mmol/L Anion Gap 12 (4-12) mmol/L BUN 10 (7-17) mg/dL Creatinine 0.58 L (0.7-1.0) mg/dL Estim Creat Clear Calc 105 ml/min Estimated GFR > 60 (59 - ) Glucose 170 H (65-110) mg/dL Calcium 9.0 (8.4-10.2) mg/dL Magnesium 1.7 (1.6-2.3) mg/dL Total Bilirubin 0.4 (0.2-1.3) mg/dL AST 19 (14-36) U/L ALT 11 (6-35) U/L Alkaline Phosphatase 49 (38-126) U/L Total Protein 7.0 (6.3-8.2) g/dL Albumin 4.3 (3.5-5.1) g/dL Beta HCG, Quant 30171.00 mIU/ML Blood Type O Positive Antibody Screen Negative Screen TNP Baby's Blood Type Not Reportable Baby's ADELE Not Reportable Doses of RhIg Required 0 Imaging Data Radiologist's impression: ITS Impressions Ultrasound 08/27/24 23:15 IMPRESSION: Thickened, complex, hypervascular, endometrium measuring greater than 2 cm (with active bleeding during the examination). No intrauterine gestation is visualized. Critical Care Time Critical Care Time Critical Care Time: No Discharge Plan Discharge Clinical Impression: Incomplete miscarriage, Hypokalemia Patient Disposition: Home, Self-Care Condition: Improved Instructions: Miscarriage (ED), Hypokalemia (ED) Additional Instructions: Return to the ER if you experience fever, chest pain, shortness of breath, abdominal pain with nausea and vomiting, you are unable to keep down liquids or solids, you are soaking through a pad/hour, or any other symptoms that are concerning to you Rest. Remain well hydrated. I have sent an order electronically for you to have your hormone check again in 2 days (Sunday) Follow up with your OB Patient Language: Urdu Prescriptions: No Action prenat.vits,dontrell,acu-lmye-jnvgu Tablet 1 tablet PO DAILY ondansetron HCl 4 mg tablet 4 mg PO Q6H PRN (Reason: Nausea) docusate sodium 100 mg Capsule 100 mg PO BID PRN (Reason: Constipation) Qty: 60 0RF ibuprofen 600 mg Tablet 600 mg PO Q6H PRN (Reason: Cramping) Qty: 30 0RF Other Ambulatory Orders: Beta HCG Quantitative (Routine) Timeframe: 2 Days Location: Determined by Patient Ordered By: Gisele Ruelas Follow-up/Referrals: UNKNOWN,DOCTOR [Primary Care Provider] -
[2024-08-27 22:37] LABS: Basophils Absolute Auto 0.1 K/mm3 (0.0-0.1); Basophils Percent Auto 0.4 % (0.2-1.2); Eosinophils Absolute Auto 0.1 K/mm3 (0-0.3); Eosinophils Percent Auto 0.7 % (0-4.4); Hematocrit 31.7 % (37.0-47.0); Hemoglobin 10.5 g/dL (12.0-15.0); Immature Granulocyte Absolute 0.06 K/mm3 (0.00-0.031); Immature Granulocyte Percent A 0.4 % (0-0.5); Lymphocytes Absolute Auto 2.43 K/mm3 (0.9-3.2); Lymphocytes Percent Auto 14.6 % (18.3-44.2); Mean Corpuscular HGB Conc 33.1 g/dl (32-36); Mean Corpuscular Volume 84.5 fl (80-100); Mean Platelet Volume 9.6 fl (7.4-10.4); Monocytes Absolute Auto 0.9 K/mm3 (0.1-0.6); Monocytes Percent Auto 5.1 % (2.6-8.5); Neutrophils Absolute Auto 13.2 K/mm3 (1.3-6.7); Neutrophils Percent Auto 78.8 % (45.5-73.1); Platelet Count Result 249 k/mm3 (150-375); Red Blood Count 3.75 M/mm3 (4.2-5.4); Red Cell Distribution Width 14.8 % (11.5-14.5); White Blood Count 16.7 K/mm3 (4.5-10.0)
[2024-08-27 22:47] VITALS: BP 116/84; PULSE 117; RESP 19; O2SAT 100
[2024-08-27 23:00] LABS: Alanine Aminotransferase 11 U/L (6-35); Albumin Level 4.3 g/dL (3.5-5.1); Alkaline Phosphatase 49 U/L (38-126); Anion Gap 12 mmol/L (4-12); Aspartate Amino Transferase 19 U/L (14-36); Bilirubin,Total 0.4 mg/dL (0.2-1.3); Blood Urea Nitrogen 10 mg/dL (7-17); Carbon Dioxide 22 mmol/L (22-30); Chloride 100 mmol/L (98-107); Estimated CRCL calculation 105 ml/min; Estimated Glomerular Filt Rate > 60; Glucose 170 mg/dL (65-110); Potassium 2.9 mmol/L (3.4-5.0); Sodium 134 mmol/L (137-145)
[2024-08-27] MEDS: SODIUM CHLORIDE 0.9% IV 1,000 ML 999 ML IV CONT (23:01)
[2024-08-27 23:11] LABS: INR 1.2; Prothrombin Time 15.4 Seconds (11.1-14.7)
[2024-08-27 23:12] LABS: Partial Thromboplastin Time 26.6 Seconds (22.3-36.8)
[2024-08-27 23:41] LABS: Magnesium 1.7 mg/dL (1.6-2.3)
[2024-08-28 00:05] VITALS: BP 108/62; PULSE 91; RESP 16; O2SAT 100
[2024-08-28] MEDS: POTASSIUM CHLORIDE 20 MEQ PACKET (FOR LIQUID) 40 MEQ PO (00:16)
[2024-08-28 00:20] VITALS: BP 108/52; PULSE 89; RESP 15; O2SAT 100
== END 2024-08-28 00:22 | disposition home or self-care (01) ==
PROVIDERS: Emergency Provider Physician Assistant
DX: O03.4 Incomplete spontaneous abortion without complication (principal); E87.6 Hypokalemia; Z87.891 Personal history of nicotine dependence
CPT/HCPCS: 36415; 76801; 80053; 83735; 84702; 85025; 85461; 85610; 85730; 86850; 86900; 86901; 96360; 99284; A9270; J7030